=== PATIENT | male | born 1940 | race Caucasian/White ===

== ENCOUNTER 2016-05-30 01:35 | Inpatient (IN) | payer MEDICARE ==
--- NOTE | 2016-05-30 01:51 | ED ---
General Adult HPI - General Chief complaint: Shortness of Breath Stated complaint: Cough/PILY hx COPD/Emphysema Time Seen by Provider: 05/30/16 01:50 Source: patient, RN notes reviewed, old records reviewed Mode of arrival: wheelchair Limitations: no limitations - History of Present Illness Initial comments: This is a 76-year-old male the ER for evaluation. The patient's coming in for cough congestion or shortness of breath. No known fevers. Strong significant medical history consisting of CAD, pacemaker, COPD, CHF. Patient does have a recent hospital admission for definitive care spenser, thinks is impossible for me to days at that time. Patient's symptoms were going on for 2 days, getting progressively worse. No specific chest pain at this time. No travel history. - Related Data Home Medications Medication Instructions Recorded Confirmed Levothyroxine Sodium [Synthroid] 100 mcg PO QAM 09/12/14 05/30/16 Aspirin EC [Ecotrin] 325 mg PO QAM 01/13/15 05/30/16 Atorvastatin [Lipitor] 40 mg PO HS 01/13/15 05/30/16 Lisinopril-Hctz 10-12.5 mg 0.5 tab PO HS PRN 01/13/15 05/30/16 [Zestoretic 10-12.5] Ipratropium-Albuterol Nebulize 3 ml INHALATION Q4H PRN 04/06/16 05/30/16 [Duoneb 0.5 mg-3 mg/3 ml Soln] Mometasone/Formoterol [Dulera 100 2 puff INHALATION RT-BID 04/06/16 05/30/16 Mcg/5 Mcg Inhaler] Montelukast [Singulair] 10 mg PO HS 04/06/16 05/30/16 Omeprazole 20 mg PO DAILY 04/06/16 05/30/16 Allergies Allergy/AdvReac Type Severity Reaction Status Date / Time codeine Allergy Rash/Hives Verified 05/30/16 01:46 iodine Allergy Rash/Hives Verified 05/30/16 01:46 Review of Systems ROS Statement: Those systems with pertinent positive or pertinent negative responses have been documented in the HPI. ROS Other: All systems not noted in ROS Statement are negative. Past Medical History Past Medical History: Coronary Artery Disease (CAD), COPD, CVA/TIA, Dementia, Hyperlipidemia, Hypertension, Osteoarthritis (OA), Syncope, Thyroid Disorder Additional Past Medical History / Comment(s): DYSPHAGIA with epiglottitis from ingested piece of food Last Myocardial Infarction Date:: 1973 History of Any Multi-Drug Resistant Organisms: None Reported Past Surgical History: Appendectomy, Cholecystectomy, Coronary Bypass/CABG, Hernia Repair, Orthopedic Surgery, Pacemaker, Tonsillectomy Additional Past Surgical History / Comment(s): RT ANKLE PIN, FX LEFT HIP WITH PIN, CABG X3, [facility] [employer] Past Anesthesia/Blood Transfusion Reactions: No Reported Reaction Type of Cardiac Device: Permanent Pacemaker Device Placement Date:: 08/31/2014 Past Psychological History: No Psychological Hx Reported Additional Psychological History / Comment(s): DEMENTIA Smoking Status: Former smoker Past Alcohol Use History: None Reported Additional Past Alcohol Use History / Comment(s): Patient is a smoker, pack a day for 50 years and quit 10 years ago. Alcohol intake is rarely. He does not use any street drugs. He is single but lives with family members. He does not have home oxygen, nebulizers, CPAP. Past Drug Use History: None Reported - Past Family History Father Additional Family Medical History / Comment(s): Father at age 37 from motor vehicle accident Brother(s) Additional Family Medical History / Comment(s): Patient has 1 brother and 2 sisters and a half-brother with no major medical problems. Patient also has 2 daughters and 2 sons with no major medical problems. Mother Family Medical History: CVA/TIA Additional Family Medical History / Comment(s): Mother at age 67 from old age. General Exam Limitations: no limitations General appearance: alert, in no apparent distress, anxious Head exam: Present: atraumatic, normocephalic, normal inspection Eye exam: Present: normal appearance, PERRL, EOMI. Absent: scleral icterus, conjunctival injection, periorbital swelling ENT exam: Present: mucous membranes dry, mucous membranes moist Neck exam: Present: normal inspection. Absent: tenderness, meningismus, lymphadenopathy Respiratory exam: Present: normal lung sounds bilaterally, wheezes, decreased breath sounds, prolonged expiratory. Absent: respiratory distress, rales, rhonchi, stridor Cardiovascular Exam: Present: normal rhythm, tachycardia, normal heart sounds. Absent: systolic murmur, diastolic murmur, rubs, gallop, clicks GI/Abdominal exam: Present: soft, normal bowel sounds. Absent: distended, tenderness, guarding, rebound, rigid Extremities exam: Present: normal inspection, full ROM, normal capillary refill. Absent: tenderness, pedal edema, joint swelling, calf tenderness Back exam: Present: normal inspection Neurological exam: Present: alert, oriented X3, CN II-XII intact Psychiatric exam: Present: normal affect, normal mood Skin exam: Present: warm, dry, intact, normal color. Absent: rash Course Vital Signs 05/30/16 05/30/16 05/30/16 01:43 02:35 02:44 Temperature 99.3 F Pulse Rate 111 H 94 94 Respiratory 26 H Rate Blood Pressure 110/65 O2 Sat by Pulse 91 L Oximetry 05/30/16 03:00 Temperature 99.0 F Pulse Rate 94 Respiratory 18 Rate Blood Pressure 119/57 O2 Sat by Pulse 96 Oximetry - Reevaluation(s) Reevaluation #1: 05/30/16 03:27 Patient states he felt better after being treatment and IV hydration. EKG Findings - EKG Comments: EKG Findings:: EKG shows sinus tachycardia rate of 105, MO 150, QRS 116, QTc 478 Medical Decision Making - Medical Decision Making 76 male here for significant short of breath cough and congestion, positive for hospital-acquired pneumonia and treated with appropriate back, patient will be admitted for [place], patient also found to have elevated troponin, patient will be admitted for cardiac evaluation, EKG is negative, patient will be anticoagulated with serial troponins. Patient does have significant history of heart disease - Lab Data Result diagrams: 05/30/16 02:02 05/30/16 02:02 Lab Results 05/30/16 05/30/16 05/30/16 Range/Units 02:02 02:02 02:02 WBC 14.3 H (3.8-10.6) k/uL RBC 4.79 (4.30-5.90) m/uL Hgb 13.7 (13.0-17.5) gm/dL Hct 41.9 (39.0-53.0) % MCV 87.5 (80.0-100.0) fL MCH 28.6 (25.0-35.0) pg MCHC 32.7 (31.0-37.0) g/dL RDW 13.7 (11.5-15.5) % Plt Count 226 (150-450) k/uL PT (9.0-12.0) sec INR (<1.1) Sodium 142 (137-145) mmol/L Potassium 4.3 (3.5-5.1) mmol/L Chloride 106 (98-107) mmol/L Carbon Dioxide 23 (22-30) mmol/L Anion Gap 13 mmol/L BUN 17 (9-20) mg/dL Creatinine 1.10 (0.66-1.25) mg/dL Est GFR (MDRD) Af Amer >60 (>60 ml/min/1.73 sqM) Est GFR (MDRD) Non-Af >60 (>60 ml/min/1.73 sqM) Glucose 140 H (74-99) mg/dL Plasma Lactic Acid Cy (0.7-2.0) mmol/L Calcium 9.2 (8.4-10.2) mg/dL Magnesium 1.7 (1.6-2.3) mg/dL Total Bilirubin 0.9 (0.2-1.3) mg/dL AST 21 (17-59) U/L ALT 32 (21-72) U/L Alkaline Phosphatase 68 (38-126) U/L Total Creatine Kinase 82 (55-170) U/L CK-MB (CK-2) 1.7 (0.0-2.4) ng/mL CK-MB (CK-2) Rel Index 2.1 Troponin I 0.138 H* (0.000-0.034) ng/mL NT-Pro-B Natriuret Pep pg/mL Total Protein 6.6 (6.3-8.2) g/dL Albumin 3.9 (3.5-5.0) g/dL 05/30/16 05/30/16 05/30/16 Range/Units 02:02 02:02 02:02 WBC (3.8-10.6) k/uL RBC (4.30-5.90) m/uL Hgb (13.0-17.5) gm/dL Hct (39.0-53.0) % MCV (80.0-100.0) fL MCH (25.0-35.0) pg MCHC (31.0-37.0) g/dL RDW (11.5-15.5) % Plt Count (150-450) k/uL PT 11.3 (9.0-12.0) sec INR 1.1 (<1.1) Sodium (137-145) mmol/L Potassium (3.5-5.1) mmol/L Chloride (98-107) mmol/L Carbon Dioxide (22-30) mmol/L Anion Gap mmol/L BUN (9-20) mg/dL Creatinine (0.66-1.25) mg/dL Est GFR (MDRD) Af Amer (>60 ml/min/1.73 sqM) Est GFR (MDRD) Non-Af (>60 ml/min/1.73 sqM) Glucose (74-99) mg/dL Plasma Lactic Acid Cy 1.2 (0.7-2.0) mmol/L Calcium (8.4-10.2) mg/dL Magnesium (1.6-2.3) mg/dL Total Bilirubin (0.2-1.3) mg/dL AST (17-59) U/L ALT (21-72) U/L Alkaline Phosphatase (38-126) U/L Total Creatine Kinase (55-170) U/L CK-MB (CK-2) (0.0-2.4) ng/mL CK-MB (CK-2) Rel Index Troponin I (0.000-0.034) ng/mL NT-Pro-B Natriuret Pep 533 pg/mL Total Protein (6.3-8.2) g/dL Albumin (3.5-5.0) g/dL - Radiology Data Radiology results: report reviewed (Chest x-ray two-view positive for pneumonia) , image reviewed Critical Care Time Critical Care Time: Yes Total Critical Care Time: 31 Disposition Clinical Impression: Unstable angina pectoris, Weakness, Community acquired pneumonia, Nosocomial pneumonia, NSTEMI (non-ST elevated myocardial infarction), Elevated troponin Disposition: ADMITTED IP TO THIS [facility] Condition: Serious Referrals: Cyndi Herrera MD [Primary Care Provider] - 1-2 days
[2016-05-30] MEDS ORDERED: ALBUTEROL NEBULIZED 2.5 MG/3 ML INHALATION STA (01:52)
[2016-05-30] MEDS ORDERED: SODIUM CHLORIDE 0.9% 1,000 ML IV STA (01:52)
[2016-05-30] MEDS ORDERED: SODIUM CHLORIDE 0.9% 500 ML IV STA (01:52)
[2016-05-30] MEDS ORDERED: IPRATROPIUM 0.5 MG/2.5 ML NEBU INHALATION STA (01:52)
[2016-05-30 02:30] LABS: CH 29.9; CHCM 34.4; HCT 41.9 % (39.0-53.0); HDW 3.26; HGB 13.7 gm/dL (13.0-17.5); Immature Gran Flag Moderate; MCH 28.6 pg (25.0-35.0); MCHC 32.7 g/dL (31.0-37.0); MCV 87.5 fL (80.0-100.0); Mean Platelet Volume 7.1; RBC 4.79 m/uL (4.30-5.90); RDW 13.7 % (11.5-15.5); WBC 14.3 k/uL (3.8-10.6); WBC (Perox) 14.76
--- NOTE | 2016-05-30 02:30 | XR ---
EXAMINATION TYPE: XR chest 2V DATE OF EXAM: 05/30/2016 2:19 AM COMPARISON: 04/06/2016 HISTORY: Difficulty in breathing, chest pain, COPD, emphysema heart bypass TECHNIQUE: Frontal and lateral views of the chest are obtained. FINDINGS: Mild opacities are noted in the right lung base and is suspicious for mild active infiltrates in the right middle lobe of lung. Left-sided pacemaker is noted. Sternotomy changes are present. Surgical clips are also noted in the r ight upper abdomen with mild gaseous distention of bowel loops. The cardiac silhouette size is within normal limits. No pneumothorax or pleural effusion is noted. [id number] degenerative changes are present in th e thoracic spine. IMPRESSION: 1. Suspected mild active infiltrates in the right middle lobe of lung.
[2016-05-30 02:41] LABS: ALT 32 U/L (21-72); AST 21 U/L (17-59); Alkaline Phosphatase 68 U/L (38-126); Anion Gap 13 mmol/L; Blood Urea Nitrogen 17 mg/dL (9-20); Calcium 9.2 mg/dL (8.4-10.2); Carbon Dioxide 23 mmol/L (22-30); Chloride 106 mmol/L (98-107); Glucose 140 mg/dL (74-99); Magnesium 1.7 mg/dL (1.6-2.3); Non-African American GFR(MDRD) >60 (>60 ml/min/1.73 sqM); Potassium 4.3 mmol/L (3.5-5.1); Sodium 142 mmol/L (137-145); Total Bilirubin 0.9 mg/dL (0.2-1.3); Total Protein 6.6 g/dL (6.3-8.2)
[2016-05-30 02:42] LABS: INR 1.1 (<1.1); Prothrombin Time 11.3 sec (9.0-12.0)
[2016-05-30] MEDS ORDERED: LEVOFLOXACIN 750MG-D5W PMX 750 MG in DEXTROSE/WATER 1 150ML.BAG IVPB STA (02:42)
[2016-05-30] MEDS ORDERED: PIPERACILLIN-TAZOBACTAM 3.375 GM in DEXTROSE/WATER 1 50ML.BAG IVPB STA (02:42)
[2016-05-30 03:13] LABS: Creatine Kinase MB 1.7 ng/mL (0.0-2.4)
[2016-05-30 03:17] LABS: Troponin I 0.138 ng/mL (0.000-0.034)
[2016-05-30] MEDS ORDERED: MORPHINE SULFATE 4 MG/ML SYRINGE IV PRN (03:24)
[2016-05-30] MEDS ORDERED: NITROGLYCERIN SL TABS 0.4 MG TAB SUBLINGUAL PRN (03:24)
[2016-05-30] MEDS ORDERED: HEPARIN SODIUM,PORCINE 5,000 UNIT/ML 1 ML VIAL IV PRN (03:24)
[2016-05-30] MEDS ORDERED: PNEUMONIA PROTOCOL UTILIZED 1 EACH MISC PO PRN (03:24)
[2016-05-30] MEDS ORDERED: HEPARIN SODIUM,PORCINE 5,000 UNIT/ML 1 ML VIAL IV ONE (03:24)
[2016-05-30] MEDS ORDERED: ASPIRIN 81 MG CHEW PO STA (03:24)
[2016-05-30 03:29] LABS: Add Differential Manual Differential
[2016-05-30 03:34] LABS: Band Neutrophils % 33.5 %; Metamyelocytes % 0.5 %; Nucleated Red Blood Cells 0 /100 WBC (0-0); Total Cells Counted 200
[2016-05-30 03:36] LABS: Polychromasia Present
[2016-05-30 03:40] LABS: Toxic Vacuolation Present
[2016-05-30] MEDS: HEPARIN SODIUM,PORCINE/D5W PMX 25,000 UNIT in DEXTROSE/WATER 1 500ML.BAG IV SCH (04:16)
[2016-05-30] MEDS: IPRATROPIUM-ALBUTEROL 3 ML NEB INHALATION SCH ×4 (07:57→19:54)
[2016-05-30] MEDS: ATORVASTATIN 80 MG TAB PO SCH (08:25)
[2016-05-30 09:54] LABS: Creatine Kinase MB 2.8 ng/mL (0.0-2.4)
[2016-05-30 09:55] LABS: Troponin I 0.579 ng/mL (0.000-0.034)
--- NOTE | 2016-05-30 11:13 | P.CRDCN ---
History of Present Illness Consult date: 05/30/16 Requesting physician: Cyndi Herrera Reason for Consult (text): Abnormal troponins Chief complaint: Persistent cough History of present illness: This is a 76-year-old gentleman who follows regularly with Dr. VC Pichardo in the office. He has a known history of coronary artery disease with prior bypass surgery in 1994, hypertension, hyperlipidemia, prior pacemaker implantation. Recent echocardiogram with Doppler study was performed in March which revealed an ejection fraction of 50-55%. Patient presents to the hospital on this occasion with symptoms of persistent cough, productive of clear sputum. Denies any overt shortness of breath. He denies having any chest discomfort at home, he states that while here in the emergency center every time he coughs he gets a pressure in the middle of his chest that lasts about 10 minutes and then subsides. Overall the patient states she's been doing fairly well at home, he did have an admission to the hospital in March of last year with suspicion of AICD discharge, however patient does not have an AICD, he has a pacemaker which was interrogated at that time and is functioning appropriately. EKG on admission showed a sinus tachycardia with a right bundle branch block pattern. Repeat EKG performed this morning showed a normal sinus rhythm with lateral T-wave changes. Chest x-ray on admission revealed the suspicion of an infiltrate in the right middle lobe of the lung. Temperature on admission 99.3. Afebrile this morning. Blood pressure 100/56, heart rate 70s, 94% on 2 L of oxygen. Laboratory data was reviewed, white blood cell count 14.3, hemoglobin 13.7, hematocrit 41.9 with a platelet count of 226. Magnesium level I.7, potassium 4.3, troponin 0.13, 0.57. BNP level 533. At the time of my examination this morning, patient's main complaint is that of this persistent cough, he does state that he is still getting intermittent chest pain each time lasting approximately 10 minutes, describes it as a pressure, states that it occurs after coughing. 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 Last Myocardial Infarction Date:: 1993 History of Any Multi-Drug Resistant Organisms: None Reported Past Surgical History: Appendectomy, Cholecystectomy, Coronary Bypass/CABG, Heart Catheterization, Hernia Repair, Orthopedic Surgery, Pacemaker, Tonsillectomy Additional Past Surgical History / Comment(s): RT ANKLE PIN, FX LEFT HIP WITH nailing, 1993 CABG X3 vessels, [employer] Past Anesthesia/Blood Transfusion Reactions: No Reported Reaction Type of Cardiac Device: Permanent Pacemaker Device Placement Date:: 08/31/2014 Past Psychological History: No Psychological Hx Reported Additional Psychological History / Comment(s): DEMENTIA. Pt resides with his daughter. He no longer drives, his daughter takes him to [employer]. His daughter ( Eula) is his legal guardian. He uses no assistive device. Smoking Status: Never smoker Past Alcohol Use History: None Reported Additional Past Alcohol Use History / Comment(s): Patient started smoking in 1956 and quit in 1994. He had been a pack a day smoker. Alcohol intake is rarely. He does not use any street drugs. He is single but lives with family members. He does not have home oxygen, nebulizers, CPAP. Past Drug Use History: None Reported - Past Family History Father Additional Family Medical History / Comment(s): Father at age 37 from motor vehicle accident Brother(s) Additional Family Medical History / Comment(s): Patient has 1 brother and 2 sisters and a half-brother with no major medical problems. Patient also has 2 daughters and 2 sons with no major medical problems. Mother Family Medical History: CVA/TIA Additional Family Medical History / Comment(s): Mother at age 84 from old age. Medications and Allergies Home Medications Medication Instructions Recorded Confirmed Type Levothyroxine Sodium [Synthroid] 100 mcg PO QAM 09/12/14 05/30/16 History Aspirin EC [Ecotrin] 325 mg PO QAM 01/13/15 05/30/16 History Atorvastatin [Lipitor] 40 mg PO HS 01/13/15 05/30/16 History Lisinopril-Hctz 10-12.5 mg 0.5 tab PO HS PRN 01/13/15 05/30/16 History [Zestoretic 10-12.5] Ipratropium-Albuterol Nebulize 3 ml INHALATION RT-QID PRN 04/06/16 05/30/16 History [Duoneb 0.5 mg-3 mg/3 ml Soln] Mometasone/Formoterol [Dulera 100 2 puff INHALATION RT-BID 04/06/16 05/30/16 History Mcg/5 Mcg Inhaler] Montelukast [Singulair] 10 mg PO HS 04/06/16 05/30/16 History Omeprazole 20 mg PO DAILY 04/06/16 05/30/16 History Allergies Allergy/AdvReac Type Severity Reaction Status Date / Time codeine Allergy Rash/Hives Verified 05/30/16 07:27 iodine Allergy Rash/Hives Verified 05/30/16 07:27 Physical Exam Vitals: Vital Signs Temp Pulse Pulse Resp BP BP Pulse Ox 05/30/16 10:49 73 05/30/16 10:43 75 05/30/16 08:05 72 05/30/16 08:00 96.9 F L 87 16 100/56 94 L 05/30/16 07:58 75 05/30/16 05:59 98.2 F 88 16 122/56 97 05/30/16 04:00 98.4 F 90 18 122/63 98 PHYSICAL EXAMINATION: HEENT: Head is atraumatic, normocephalic. Pupils equal, round. Neck is supple. There is no elevated jugular venous pressure. HEART EXAMINATION: Heart S1, S2 normal. No murmur or gallop heard. CHEST EXAMINATION: Lungs reveal scattered rhonchi posterior bases. ABDOMEN: Soft, nontender. Bowel sounds are heard. No organomegaly noted. EXTREMITIES: 2+ peripheral pulses with no evidence of peripheral edema and no calf tenderness noted. NEUROLOGIC patient is awake, alert and oriented -3. . Results 05/30/16 02:02 05/30/16 02:02 Cardiac Enzymes 05/30/16 Range/Units 07:08 CK-MB (CK-2) 2.8 H* (0.0-2.4) ng/mL Troponin I 0.579 H* (0.000-0.034) ng/mL Coagulation 05/30/16 Range/Units 09:57 APTT 78.9 H (22.0-30.0) sec Current Medications Generic Name Dose Route Start Last Admin Trade Name Freq PRN Reason Stop Dose Admin Albuterol/Ipratropium 3 ml 05/30/16 08:00 05/30/16 10:42 Duoneb 0.5 Mg-3 Mg/3 Ml Soln INHALATION 3 ml RT-QID IDRIS Administration Aspirin 325 mg 05/31/16 09:00 Aspirin PO DAILY IDRIS Atorvastatin Calcium 80 mg 05/30/16 09:00 05/30/16 08:25 Lipitor PO 80 mg DAILY IDRIS Administration Heparin Sodium (Porcine) 0 unit 05/30/16 03:24 Heparin IV PER PROTOCOL PRN Low PTT Protocol Sodium Chloride 1,000 mls @ 100 mls/hr 05/30/16 01:52 05/30/16 02:13 Saline 0.9% IV 05/30/16 11:51 100 mls/hr .Q10H STA Administration Heparin Sodium/Dextrose 25,000 500 mls @ 17.85 mls/hr 05/30/16 03:30 04:16 unit/ IV Solution IV 12 units/kg/hr .Q24H IDRIS 17.85 mls/hr Protocol Administration 12 UNITS/KG/HR Levofloxacin 750 mg/ IV 150 mls @ 100 mls/hr 05/31/16 03:00 Solution IVPB 06/10/16 03:01 Q24H IDRIS Piperacillin/Tazobactam/ 50 mls @ 12.5 mls/hr 05/30/16 12:00 Dextrose 3.375 gm/ IV Solution IVPB Q8H IDRIS Sodium Chloride 1,000 mls @ 100 mls/hr 05/30/16 03:30 Saline 0.9% IV .Q10H IDRIS Miscellaneous Information 1 each 05/30/16 03:24 Pneumonia Protocol Utilized PO ONCE PRN Per Protocol Morphine Sulfate 4 mg 05/30/16 03:24 Morphine Sulfate (Inj) IV Q4HR PRN Chest Pain Nitroglycerin 0.4 mg 05/30/16 03:24 Nitrostat SUBLINGUAL Q5M PRN Chest Pain EKG Interpretations (text) Initial EKG shows a sinus tachycardia with a right bundle branch block pattern lateral ST-T wave changes. Repeat EKG performed this morning shows a normal sinus rhythm with right bundle branch block pattern and progression and lateral ST-T wave changes. Assessment and Plan Plan: Assessment and plan #1 symptoms of persistent cough with evidence of low-grade temperature, elevated white blood cell count suspicion of a right lung pneumonia. Currently on antibiotics. #2 abnormal troponins, possible non-Q-wave myocardial infarction, EKG shows normal sinus rhythm with lateral ST-T wave changes, new as compared with prior EKGs. #3 known history of coronary artery disease with prior bypass surgery #4 hypertension # 5 hyperlipidemia #6 hypothyroidism #7 permanent pacemaker for sick sinus syndrome Plan We will obtain a surgical value, we will also request a repeat echocardiogram with Doppler study because of the abnormal troponins. Continue IV heparin. Further recommendations to follow. DNP note has been reviewed, I agree with a documented findings and plan of care. Patient was seen and examined.
[2016-05-30] MEDS ORDERED: PIPERACILLIN-TAZOBACTAM 3.375 GM in DEXTROSE/WATER 1 50ML.BAG IVPB SCH (12:00)
--- NOTE | 2016-05-30 12:37 | ECHOF ---
Referral Reason:abn trop MEASUREMENTS -------- HEIGHT: 175.3 cm WEIGHT: 74.4 kg BP: 117/56 RVIDd: 3.4 cm (< 3.3) IVSd: 1.2 cm (0.6 - 1.1) LVIDd: 4.3 cm (3.9 - 5.3) LVPWd: 1.0 cm (0.6 - 1.1) IVSs: 1.4 cm LVIDs: 3.0 cm LVPWs: 1.6 cm LA Diam: 3.6 cm (2.7 - 3.8) LAESV Index (A-L): 24.93 ml/m Ao Diam: 2.8 cm (2.0 - 3.7) AV Cusp: 1.8 cm (1.5 - 2.6) MV EXCURSION: 5.553 mm (> 18.000) MV EF SLOPE: 69 mm/s (70 - 150) EPSS: 0.5 cm AV maxP.18 mmHg AV meanP.87 mmHg RAP: 5.00 mmHg RVSP: 63.71 mmHg FINDINGS -------- Sinus rhythm. This was a technically adequate study. The left ventricular size is normal. There is borderline concentric left ventricular hypertrophy. Overall left ventricular systolic function is normal with, an EF between 55 - 60 %. The right ventricle is mildly enlarged. The left atrium is normal in size. Normal LA size by volume 22+/-6 ml/m2. The right atrium is normal in size. Aortic valve is trileaflet and is mildly thickened. There is mild aortic stenosis present. Peak/mean gradient across the Aortic Valve is 16.18mmHg / 8.87mmHg. Mild mitral annular calcification present. Mild tricuspid regurgitation present. There is severe pulmonary hypertension. The right ventricular systolic pressure, as measured by Doppler, is 63.71mmHg. The pulmonic valve was not well visualized. The aortic root size is normal. There is no pericardial effusion. CONCLUSIONS -------- 1. Sinus rhythm. 2. There is mild aortic stenosis present. 3. Peak/mean gradient across the Aortic Valve is 16.18mmHg / 8.87mmHg. 4. Mild mitral annular calcification present. 5. Mild tricuspid regurgitation present. 6. There is severe pulmonary hypertension. 7. The right ventricular systolic pressure, as measured by Doppler, is 63.71mmHg. 8. The pulmonic valve was not well visualized. 9. The aortic root size is normal. 10. There is no pericardial effusion. 11. This was a technically adequate study. 12. The left ventricular size is normal. 13. There is borderline concentric left ventricular hypertrophy. 14. Overall left ventricular systolic function is normal with, an EF between 55 - 60 %. 15. The right ventricle is mildly enlarged. 16. Normal LA size by volume 22+/-6 ml/m2. 17. The right atrium is normal in size. 18. Aortic valve is trileaflet and is mildly thickened. ENERGY SPECIALIST: Louann Bello RDCS
[2016-05-30] MEDS: methylPREDNISolone SOD SUCCI 125 MG/2 ML VIAL IV SCH ×2 (13:32→20:52)
[2016-05-30] MEDS ORDERED: LISINOPRIL-HCTZ 10-12.5 MG 1 EACH TAB PO PRN (15:14)
--- NOTE | 2016-05-30 15:14 | P.HPIM ---
History of Present Illness H&P Date: 05/30/16 Chief Complaint: Cough and dizziness This is a 76-year-old male. His primary care physician is Dr. Herrera. He has a past medical history for coronary artery disease status post CABG, pacemaker, hypertension, hypothyroidism, hyperlipidemia, dysphagia with epiglottitis from ingesting piece of food. Patient states that he has been managing at home well until 2 weeks ago he started with a cough that was nonproductive as well as headache from coughing. He also had some dizziness. He then also developed some wheezing due to his underlying COPD. He states he did not use his nebulizer. His daughter made him come into [facility] emergency center for evaluation. Chest x-ray showed suspected mild active infiltrates in the right middle lobe of the lung. Surprisingly, troponins were elevated at 0.138 and 0.579. He has been seen in consultation by cardiology. Echocardiogram reveals mild aortic stenosis, mild tricuspid regurgitation, severe pulmonary hypertension, borderline concentric left ventricular hypertrophy, EF 55-60%,. Patient is continued on IV heparin. Patient is seen in the emergency center as he is waiting for a selective care bed. Review of Systems All systems: negative Constitutional: Denies chills, Denies fever Eyes: denies blurred vision, denies pain Ears, nose, mouth and throat: Reports vertigo, Denies headache, Denies sore throat Cardiovascular: Reports chest pain, Reports shortness of breath Respiratory: Reports cough, Reports dyspnea, Denies home oxygen Gastrointestinal: Denies abdominal pain, Denies diarrhea, Denies nausea, Denies vomiting Musculoskeletal: Denies myalgias Integumentary: Denies pruritus, Denies rash Neurological: Denies numbness, Denies weakness Psychiatric: Denies anxiety, Denies depression Endocrine: Denies fatigue, Denies weight change Past Medical History Past Medical History: Asthma, Coronary Artery Disease (CAD), Heart Failure, COPD , CVA/TIA, Dementia, Hyperlipidemia, Hypertension, Myocardial Infarction (NV), Osteoarthritis (OA), Pneumonia, Syncope, Thyroid Disorder Additional Past Medical History / Comment(s): DYSPHAGIA with epiglottitis from ingested piece of food, 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 Last Myocardial Infarction Date:: 1993 History of Any Multi-Drug Resistant Organisms: None Reported Past Surgical History: Appendectomy, Cholecystectomy, Coronary Bypass/CABG, Heart Catheterization, Hernia Repair, Orthopedic Surgery, Pacemaker, Tonsillectomy Additional Past Surgical History / Comment(s): RT ANKLE PIN, FX LEFT HIP WITH nailing, 1993 CABG X3 vessels, [facility] Past Anesthesia/Blood Transfusion Reactions: No Reported Reaction Type of Cardiac Device: Permanent Pacemaker Device Placement Date:: 08/31/2014 Past Psychological History: No Psychological Hx Reported Additional Psychological History / Comment(s): DEMENTIA. Pt resides with his daughter. He no longer drives, his daughter takes him to [employer]. His daughter ( Eula) is his legal guardian. He uses no assistive device. Smoking Status: Never smoker Past Alcohol Use History: None Reported Additional Past Alcohol Use History / Comment(s): Patient started smoking in 1956 and quit in 1994. He had been a pack a day smoker. Alcohol intake is rarely. He does not use any street drugs. He is single but lives with family members. He does not have home oxygen, nebulizers, CPAP. Past Drug Use History: None Reported - Past Family History Father Additional Family Medical History / Comment(s): Father at age 37 from motor vehicle accident Brother(s) Additional Family Medical History / Comment(s): Patient has 1 brother and 2 sisters and a half-brother with no major medical problems. Patient also has 2 daughters and 2 sons with no major medical problems. Mother Family Medical History: CVA/TIA Additional Family Medical History / Comment(s): Mother at age 84 from old age. Medications and Allergies Home Medications Medication Instructions Recorded Confirmed Type Levothyroxine Sodium [Synthroid] 100 mcg PO QAM 09/12/14 05/30/16 History Aspirin EC [Ecotrin] 325 mg PO QAM 01/13/15 05/30/16 History Atorvastatin [Lipitor] 40 mg PO HS 01/13/15 05/30/16 History Lisinopril-Hctz 10-12.5 mg 0.5 tab PO HS PRN 01/13/15 05/30/16 History [Zestoretic 10-12.5] Ipratropium-Albuterol Nebulize 3 ml INHALATION RT-QID PRN 04/06/16 05/30/16 History [Duoneb 0.5 mg-3 mg/3 ml Soln] Mometasone/Formoterol [Dulera 100 2 puff INHALATION RT-BID 04/06/16 05/30/16 History Mcg/5 Mcg Inhaler] Montelukast [Singulair] 10 mg PO HS 04/06/16 05/30/16 History Omeprazole 20 mg PO DAILY 04/06/16 05/30/16 History Allergies Allergy/AdvReac Type Severity Reaction Status Date / Time codeine Allergy Rash/Hives Verified 05/30/16 07:27 iodine Allergy Rash/Hives Verified 05/30/16 07:27 Physical Exam Vitals: Vital Signs Temp Pulse Pulse Resp BP BP Pulse Ox 05/30/16 11:45 76 16 112/58 98 05/30/16 11:38 16 05/30/16 10:49 73 05/30/16 10:43 75 05/30/16 08:05 72 05/30/16 08:00 96.9 F L 87 16 100/56 94 L 05/30/16 07:58 75 05/30/16 05:59 98.2 F 88 16 122/56 97 05/30/16 04:00 98.4 F 90 18 122/63 98 Intake and Output 05/29/16 05/30/16 05/30/16 22:59 06:59 14:59 Intake Total 133.875 Output Total 300 Balance -166.125 Intake: Intake, IV Titration 133.875 Amount Heparin Sodium,Porcine/ 133.875 D5w Pmx 25,000 unit In Dextrose/Water 1 500ml. bag @ 12 UNITS/KG/HR 17. 85 mls/hr IV .Q24H [facility] Rx #:[id number] Output: Urine 300 Gen: This is a 76-year-old male. He is sitting up on the stretcher and appears to be in no acute distress. HEENT: Head is atraumatic, normocephalic. Pupils equal, round. Sclerae is anicteric. NECK: Supple. No JVD. No lymphadenopathy. No thyromegaly. LUNGS: Appear scattered rhonchi with fine expiratory wheezing. No intercostal retractions. HEART: Regular rate and rhythm. No murmur. ABDOMEN: Soft. Bowel sounds are present. No masses. No tenderness. EXTREMITIES: No pedal edema. No calf tenderness. Dorsalis pedis +2 palpable bilaterally. NEUROLOGICAL: Patient is awake, alert and oriented x3. Cranial nerves 2 through 12 are grossly intact. Results CBC & Chem 7: 05/30/16 02:02 05/30/16 02:02 Labs: Abnormal Lab Results - Last 24 Hours (Table) 05/30/16 05/30/16 Range/Units 07:08 09:57 APTT 78.9 H (22.0-30.0) sec CK-MB (CK-2) 2.8 H* (0.0-2.4) ng/mL Troponin I 0.579 H* (0.000-0.034) ng/mL Thrombosis Risk Factor Assmnt - DVT/VTE Prophylaxis DVT/VTE Prophylaxis: Pharmacologic Prophylaxis ordered - Choose All That Apply Any of the Below Risk Factors Present?: Yes Each Factor Represents 1 point: Abnormal pulmonary function (COPD), Acute NV Other Risk Factors: Yes Each Risk Factor Represents 3 Points: Age 75 years or older Other congenital or acquired thrombophilia - If yes, enter type in comment: No Thrombosis Risk Factor Assessment Total Risk Factor Score: 5 Thrombosis Risk Factor Assessment Level: High Risk Assessment and Plan Plan: 1. Pneumonia, possible gram-negative pneumonia. Patient will be continued on Levaquin, DuoNeb treatments 4 times daily, Solu-Medrol 60 mg IV every 6 hours. 2. Possible non-ST elevated myocardial infarction. Cardiology consult is appreciated. Patient is currently on heparin drip. Continue aspirin 325 mg daily, Lipitor 80 mg daily, Nitrostat as needed. 3. COPD exacerbation with underlying asthma, moderate persistent. Continue DuoNeb treatments 4 times daily, Singulair 10 mg at bedtime, Solu-Medrol 60 mg IV every 12 hours. 4. Hypertension. Continue Zestoretic 5. Hypothyroidism. Continue levothyroxine 100 g daily 6. Hyperlipidemia. Continue Lipitor 40 mg at bedtime Admit patient to the hospital for minimum two night stay. Discharge plan: Return home Impression and plan of care have been directed as dictated by the signing physician. Elizabeth Maxwell nurse practitioner acting as scribe for signing physician. Time with Patient: Greater than 30
[2016-05-30] MEDS: SODIUM CHLORIDE 0.9% 1,000 ML IV SCH ×3 (16:55→23:57)
[2016-05-30 18:10] LABS: Creatine Kinase MB 3.9 ng/mL (0.0-2.4); Troponin I 0.6 ng/mL (0.000-0.034)
[2016-05-30] MEDS: MONTELUKAST 10 MG TAB PO SCH (20:53)
[2016-05-31] MEDS: LEVOFLOXACIN 750MG-D5W PMX 750 MG in DEXTROSE/WATER 1 150ML.BAG IVPB SCH (06:03)
[2016-05-31] MEDS: HEPARIN SODIUM,PORCINE/D5W PMX 25,000 UNIT in DEXTROSE/WATER 1 500ML.BAG IV SCH (06:03)
[2016-05-31 06:27] LABS: Basophils % (A) 0 %; CH 29.2; CHCM 32.6; Eosinophils % (A) 0 %; HCT 35.8 % (39.0-53.0); HDW 3.13; HGB 11.6 gm/dL (13.0-17.5); Hypochromasia Slight; Luc # (Auto) 0.04; Luc % (Auto) 0; Lymphocytes # (A) 0.5 k/uL (1.0-4.8); Lymphocytes % (A) 5 %; MCH 29.1 pg (25.0-35.0); MCHC 32.3 g/dL (31.0-37.0); Mean Platelet Volume 6.3; Monocytes # (A) 0.2 k/uL (0-1.0); Monocytes % (A) 2 %; Neutrophils # (A) 8.2 k/uL (1.3-7.7); Neutrophils % (A) 92 %; RBC 3.98 m/uL (4.30-5.90); RDW 13.5 % (11.5-15.5); WBC 8.9 k/uL (3.8-10.6); WBC (Perox) 9.73
[2016-05-31] MEDS: PANTOPRAZOLE 40 MG TABLET PO SCH (06:28)
[2016-05-31] MEDS: LEVOTHYROXINE 100 MCG TAB PO SCH (06:28)
[2016-05-31 06:41] LABS: Cholesterol 112 mg/dL (<200); HDL Cholesterol 39 mg/dL (40-60); Triglycerides 61 mg/dL (<150)
[2016-05-31 08:01] LABS: Glucose,Whole Blood 172 mg/dL (75-99)
--- NOTE | 2016-05-31 08:09 | XR ---
EXAMINATION TYPE: XR chest 2V DATE OF EXAM: 05/31/2016 6:40 AM HISTORY: Difficulty breathing. REFERENCE: Previous study dated 05/30/2016. FINDINGS: There has been a midline sternotomy. There is a bipolar pacemaker in place on the left. The lungs are overinflated. There is some residual parenchymal opacity at the left lung base. The rig ht lung is clear. Pleural spaces are clear. Heart size is normal. IMPRESSION: 1. COPD. 2. LEFT BASILAR ATELECTASIS OR CONSOLIDATION. THIS HAS IMPROVED FROM PREVIOUS.
[2016-05-31] MEDS: ASPIRIN 325 MG TAB PO SCH (08:51)
[2016-05-31] MEDS: methylPREDNISolone SOD SUCCI 125 MG/2 ML VIAL IV SCH ×2 (08:51→22:17)
[2016-05-31] MEDS: ATORVASTATIN 80 MG TAB PO SCH (08:52)
[2016-05-31] MEDS: IPRATROPIUM-ALBUTEROL 3 ML NEB INHALATION SCH ×4 (09:20→20:25)
[2016-05-31 11:47] LABS: Glucose,Whole Blood 132 mg/dL (75-99)
[2016-05-31] MEDS: SODIUM CHLORIDE 0.9% 1,000 ML IV SCH ×2 (12:57→22:17)
[2016-05-31] MEDS: INSULIN LISPRO (humaLOG) 300 UNIT/3 ML VIAL SQ SCH ×3 (12:58→22:07)
--- NOTE | 2016-05-31 13:45 | P.PN ---
Subjective This is a 76-year-old male. His primary care physician is Dr. Herrera. He has a past medical history for coronary artery disease status post CABG, pacemaker, hypertension, hypothyroidism, hyperlipidemia, dysphagia with epiglottitis from ingesting piece of food. Patient states that he has been managing at home well until 2 weeks ago he started with a cough that was nonproductive as well as headache from coughing. He also had some dizziness. He then also developed some wheezing due to his underlying COPD. He states he did not use his nebulizer. His daughter made him come into [facility] emergency center for evaluation. Chest x-ray showed suspected mild active infiltrates in the right middle lobe of the lung. Surprisingly, troponins were elevated at 0.138 and 0.579. He has been seen in consultation by cardiology. Echocardiogram reveals mild aortic stenosis, mild tricuspid regurgitation, severe pulmonary hypertension, borderline concentric left ventricular hypertrophy, EF 55-60%,. Patient is continued on IV heparin. Patient is seen in the emergency center as he is waiting for a [facility] care bed. 05/31: Patient states he was up to the shower this morning and did fine but now developed left-sided chest pain while he was resting in bed. It was a sudden onset. Patient was given nitroglycerin with relief and Nitropaste has been added. He remains on heparin drip. He states his breathing status is somewhat better from yesterday. Echocardiogram reveals mild aortic stenosis, mild tricuspid regurgitation, severe pulmonary hypertension mild mitral calcifications, borderline concentric left ventricular hypertrophy, EF 55-60%. Third troponin is 0.6. Triglycerides 61, cholesterol 112, LDL 61, HDL 39. Objective - Vital Signs Vital signs: Vital Signs Temp 97.0 F L 05/31/16 08:00 Pulse 88 05/31/16 09:31 Resp 20 05/31/16 08:00 BP 114/55 05/31/16 04:00 Pulse Ox 100 05/31/16 08:00 Intake & Output 05/30/16 05/31/16 05/31/16 18:59 06:59 18:59 Intake Total 373.875 580.101 25.278 Output Total 300 200 Balance 73.875 380.101 25.278 Weight 75.5 kg Intake: Intake, IV Titration 133.875 280.101 25.278 Amount Heparin Sodium,Porcine/ 133.875 280.101 25.278 D5w Pmx 25,000 unit In Dextrose/Water 1 500ml. bag @ 12 UNITS/KG/HR 17. 85 mls/hr IV .Q24H [facility] Rx #:[id number] Oral 240 300 Output: Urine 300 200 Other: Voiding Method Toilet Urinal # Voids 1 - Exam Gen: This is a 76-year-old male. He is sitting up on the stretcher and appears to be in no acute distress. HEENT: Head is atraumatic, normocephalic. Pupils equal, round. Sclerae is anicteric. NECK: Supple. No JVD. No lymphadenopathy. No thyromegaly. LUNGS: Appear scattered rhonchi without wheezing. No intercostal retractions. HEART: Regular rate and rhythm. No murmur. ABDOMEN: Soft. Bowel sounds are present. No masses. No tenderness. EXTREMITIES: No pedal edema. No calf tenderness. Dorsalis pedis +2 palpable bilaterally. NEUROLOGICAL: Patient is awake, alert and oriented x3. Cranial nerves 2 through 12 are grossly intact. - Labs CBC & Chem 7: 05/31/16 05:49 05/30/16 02:02 Labs: Abnormal Lab Results - Last 24 Hours (Table) 05/30/16 05/30/16 05/30/16 Range/Units 09:57 17:12 17:12 RBC (4.30-5.90) m/uL Hgb (13.0-17.5) gm/dL Hct (39.0-53.0) % Neutrophils # (1.3-7.7) k/uL Lymphocytes # (1.0-4.8) k/uL APTT 78.9 H 53.4 H (22.0-30.0) sec POC Glucose (mg/dL) (75-99) mg/dL CK-MB (CK-2) 3.9 H* (0.0-2.4) ng/mL Troponin I 0.600 H* (0.000-0.034) ng/mL HDL Cholesterol (40-60) mg/dL 05/31/16 05/31/16 05/31/16 Range/Units 05:49 05:49 05:49 RBC 3.98 L (4.30-5.90) m/uL Hgb 11.6 L (13.0-17.5) gm/dL Hct 35.8 L (39.0-53.0) % Neutrophils # 8.2 H (1.3-7.7) k/uL Lymphocytes # 0.5 L (1.0-4.8) k/uL APTT 47.6 H (22.0-30.0) sec POC Glucose (mg/dL) (75-99) mg/dL CK-MB (CK-2) (0.0-2.4) ng/mL Troponin I (0.000-0.034) ng/mL HDL Cholesterol 39 L (40-60) mg/dL 05/31/16 Range/Units 07:49 RBC (4.30-5.90) m/uL Hgb (13.0-17.5) gm/dL Hct (39.0-53.0) % Neutrophils # (1.3-7.7) k/uL Lymphocytes # (1.0-4.8) k/uL APTT (22.0-30.0) sec POC Glucose (mg/dL) 172 H (75-99) mg/dL CK-MB (CK-2) (0.0-2.4) ng/mL Troponin I (0.000-0.034) ng/mL HDL Cholesterol (40-60) mg/dL Assessment and Plan Plan: 1. Pneumonia, possible gram-negative pneumonia. Patient will be continued on Levaquin, DuoNeb treatments 4 times daily, Solu-Medrol 60 mg IV every 12 hours. 2. Possible non-ST elevated myocardial infarction. Cardiology consult is appreciated. Patient is currently on heparin drip. Continue aspirin 325 mg daily, Lipitor 80 mg daily, Nitrostat as needed. Nitropaste added 3. COPD exacerbation with underlying asthma, moderate persistent. Continue DuoNeb treatments 4 times daily, Singulair 10 mg at bedtime, Solu-Medrol 60 mg IV every 12 hours. 4. Hypertension. Continue Zestoretic 5. Hypothyroidism. Continue levothyroxine 100 g daily 6. Hyperlipidemia. Continue Lipitor 40 mg at bedtime Discharge plan: Return home Impression and plan of care have been directed as dictated by the signing physician. Elizabeth Maxwell nurse practitioner acting as scribe for signing physician. Time with Patient: Greater than 30
[2016-05-31 14:14] LABS: Hemoglobin A1C 5.4 % (4.2-6.1)
[2016-05-31 14:44] LABS: Anion Gap 10 mmol/L; Blood Urea Nitrogen 18 mg/dL (9-20); Calcium 8.6 mg/dL (8.4-10.2); Carbon Dioxide 25 mmol/L (22-30); Chloride 108 mmol/L (98-107); Glucose 161 mg/dL (74-99); Non-African American GFR(MDRD) >60 (>60 ml/min/1.73 sqM); Potassium 4.5 mmol/L (3.5-5.1); Sodium 143 mmol/L (137-145)
--- NOTE | 2016-05-31 16:19 | P.PN ---
Subjective Principal diagnosis: Cough, CHest pain This is a 76-year-old gentleman who follows regularly with Dr. VC Pichardo in the office. He has a known history of coronary artery disease with prior bypass surgery in 1994, hypertension, hyperlipidemia, prior pacemaker implantation. Recent echocardiogram with Doppler study was performed in March which revealed an ejection fraction of 50-55%. Patient presents to the hospital on this occasion with symptoms of persistent cough, productive of clear sputum. Denies any overt shortness of breath. He denies having any chest discomfort at home, he states that while here in the emergency center every time he coughs he gets a pressure in the middle of his chest that lasts about 10 minutes and then subsides. Overall the patient states she's been doing fairly well at home, he did have an admission to the hospital in March of last year with suspicion of AICD discharge, however patient does not have an AICD, he has a pacemaker which was interrogated at that time and is functioning appropriately. EKG on admission showed a sinus tachycardia with a right bundle branch block pattern. Patient did have an episode of chest discomfort today with notable lateral ST depression. He was advised to undergo cardiac catheterization tomorrow the risks and benefits were explained in detail this will be performed tomorrow by Dr. VC Pichardo. Objective - Vital Signs Vital signs: Vital Signs Temp 97.0 F L 05/31/16 08:00 Pulse 76 05/31/16 12:38 Resp 20 05/31/16 12:00 BP 145/69 05/31/16 12:00 Pulse Ox 97 05/31/16 12:00 Intake & Output 05/30/16 05/31/16 05/31/16 18:59 06:59 18:59 Intake Total 373.875 601.311 7908.394 Output Total 300 200 Balance 73.875 118.742 8923.394 Weight 75.5 kg Intake: Intake, IV Titration 133.875 286.730 0274.394 Amount Heparin Sodium,Porcine/ 133.875 280.101 152.394 D5w Pmx 25,000 unit In Dextrose/Water 1 500ml. bag @ 12 UNITS/KG/HR 17. 85 mls/hr IV .Q24H [facility] Rx #:[id number] Levofloxacin 750Mg-D5w 100 Pmx 750 mg In Dextrose/ Water 1 150ml.bag @ 100 mls/hr IVPB Q24H [facility] Rx#: [id number] Sodium Chloride 0.9% 1, 800 000 ml @ 100 mls/hr IV . Q10H [facility] Rx#:[id number] Oral 240 300 180 Output: Urine 300 200 Other: Voiding Method Toilet Urinal # Voids 1 - Exam PHYSICAL EXAMINATION: HEENT: Head is atraumatic, normocephalic. Pupils equal, round. Neck is supple. There is no elevated jugular venous pressure. HEART EXAMINATION: Heart S1, S2 normal. No murmur or gallop heard. CHEST EXAMINATION: Lungs reveal scattered rhonchi posterior bases. ABDOMEN: Soft, nontender. Bowel sounds are heard. No organomegaly noted. EXTREMITIES: 2+ peripheral pulses with no evidence of peripheral edema and no calf tenderness noted. NEUROLOGIC patient is awake, alert and oriented -3. . - Labs CBC & Chem 7: 05/31/16 05:49 05/31/16 05:49 Labs: Abnormal Lab Results - Last 24 Hours (Table) 05/30/16 05/30/16 05/31/16 Range/Units 17:12 17:12 05:49 RBC 3.98 L (4.30-5.90) m/uL Hgb 11.6 L (13.0-17.5) gm/dL Hct 35.8 L (39.0-53.0) % Neutrophils # 8.2 H (1.3-7.7) k/uL Lymphocytes # 0.5 L (1.0-4.8) k/uL APTT 53.4 H (22.0-30.0) sec Chloride (98-107) mmol/L Glucose (74-99) mg/dL POC Glucose (mg/dL) (75-99) mg/dL CK-MB (CK-2) 3.9 H* (0.0-2.4) ng/mL Troponin I 0.600 H* (0.000-0.034) ng/mL HDL Cholesterol (40-60) mg/dL 05/31/16 05/31/16 05/31/16 Range/Units 05:49 05:49 05:49 RBC (4.30-5.90) m/uL Hgb (13.0-17.5) gm/dL Hct (39.0-53.0) % Neutrophils # (1.3-7.7) k/uL Lymphocytes # (1.0-4.8) k/uL APTT 47.6 H (22.0-30.0) sec Chloride 108 H (98-107) mmol/L Glucose 161 H (74-99) mg/dL POC Glucose (mg/dL) (75-99) mg/dL CK-MB (CK-2) (0.0-2.4) ng/mL Troponin I (0.000-0.034) ng/mL HDL Cholesterol 39 L (40-60) mg/dL 05/31/16 05/31/16 05/31/16 Range/Units 07:49 11:45 13:52 RBC (4.30-5.90) m/uL Hgb (13.0-17.5) gm/dL Hct (39.0-53.0) % Neutrophils # (1.3-7.7) k/uL Lymphocytes # (1.0-4.8) k/uL APTT 46.9 H (22.0-30.0) sec Chloride (98-107) mmol/L Glucose (74-99) mg/dL POC Glucose (mg/dL) 172 H 132 H (75-99) mg/dL CK-MB (CK-2) (0.0-2.4) ng/mL Troponin I (0.000-0.034) ng/mL HDL Cholesterol (40-60) mg/dL Assessment and Plan Plan: Assessment and plan #1 symptoms of persistent cough with evidence of low-grade temperature, elevated white blood cell count suspicion of a right lung pneumonia. Currently on antibiotics. #2 abnormal troponins, with evidence of lateral ST-T wave changes suggestive of non-Q-wave myocardial infarction, #3 known history of coronary artery disease with prior bypass surgery #4 hypertension # 5 hyperlipidemia #6 hypothyroidism #7 permanent pacemaker for sick sinus syndrome Plan Patient will be scheduled tomorrow to undergo cardiac catheterization. Risks and the benefits were explained to the patient in detail and this will be performed tomorrow by Dr. VC Pichardo. DNP note has been reviewed, I agree with a documented findings and plan of care. Patient was seen and examined.
[2016-05-31 17:04] LABS: Glucose,Whole Blood 132 mg/dL (75-99)
[2016-05-31 21:39] LABS: Glucose,Whole Blood 122 mg/dL (75-99)
[2016-05-31] MEDS: MONTELUKAST 10 MG TAB PO SCH (22:17)
[2016-05-31] MEDS: NITROGLYCERIN OINT 1 INCH/GM PACKET TOPICAL SCH (23:07)
[2016-06-01] MEDS: LEVOFLOXACIN 750MG-D5W PMX 750 MG in DEXTROSE/WATER 1 150ML.BAG IVPB SCH (04:53)
[2016-06-01] MEDS: HEPARIN SODIUM,PORCINE/D5W PMX 25,000 UNIT in DEXTROSE/WATER 1 500ML.BAG IV SCH (06:16)
[2016-06-01 06:17] LABS: Glucose,Whole Blood 150 mg/dL (75-99)
[2016-06-01] MEDS: NITROGLYCERIN OINT 1 INCH/GM PACKET TOPICAL SCH ×2 (06:20→11:34)
[2016-06-01 06:27] LABS: Basophils % (A) 0 %; CH 29.1; CHCM 31.9; Eosinophils % (A) 0 %; HCT 38.6 % (39.0-53.0); HDW 3.08; HGB 12.3 gm/dL (13.0-17.5); Hypochromasia Slight; Luc # (Auto) 0.07; Luc % (Auto) 1; Lymphocytes # (A) 0.5 k/uL (1.0-4.8); Lymphocytes % (A) 4 %; MCH 29.2 pg (25.0-35.0); MCHC 31.8 g/dL (31.0-37.0); MCV 91.8 fL (80.0-100.0); Mean Platelet Volume 6.9; Monocytes # (A) 0.5 k/uL (0-1.0); Monocytes % (A) 4 %; Neutrophils # (A) 12.4 k/uL (1.3-7.7); Neutrophils % (A) 92 %; RBC 4.21 m/uL (4.30-5.90); RDW 13.7 % (11.5-15.5); WBC 13.4 k/uL (3.8-10.6); WBC (Perox) 13.66
[2016-06-01 06:37] LABS: ALT 30 U/L (21-72); AST 26 U/L (17-59); Alkaline Phosphatase 61 U/L (38-126); Anion Gap 14 mmol/L; Blood Urea Nitrogen 18 mg/dL (9-20); Calcium 8.5 mg/dL (8.4-10.2); Carbon Dioxide 21 mmol/L (22-30); Chloride 113 mmol/L (98-107); Glucose 141 mg/dL (74-99); Non-African American GFR(MDRD) >60 (>60 ml/min/1.73 sqM); Potassium 4.2 mmol/L (3.5-5.1); Sodium 148 mmol/L (137-145); Total Bilirubin 0.4 mg/dL (0.2-1.3); Total Protein 6.2 g/dL (6.3-8.2)
[2016-06-01] MEDS: LEVOTHYROXINE 100 MCG TAB PO SCH (07:03)
[2016-06-01] MEDS: PANTOPRAZOLE 40 MG TABLET PO SCH (07:03)
[2016-06-01] MEDS: INSULIN LISPRO (humaLOG) 300 UNIT/3 ML VIAL SQ SCH ×4 (07:04→21:17)
[2016-06-01] MEDS: IPRATROPIUM-ALBUTEROL 3 ML NEB INHALATION SCH ×4 (07:36→19:37)
[2016-06-01] MEDS: SODIUM CHLORIDE 0.9% 1,000 ML IV SCH ×3 (09:26→15:46)
[2016-06-01] MEDS: methylPREDNISolone SOD SUCCI 125 MG/2 ML VIAL IV SCH (09:29)
[2016-06-01] MEDS: ASPIRIN 325 MG TAB PO SCH (09:29)
[2016-06-01] MEDS: ATORVASTATIN 80 MG TAB PO SCH (09:29)
[2016-06-01] MEDS ORDERED: LIDOCAINE 2% INJ 20 MG/ML (20 ML MDV) ONE (11:12)
[2016-06-01] MEDS ORDERED: diphenhydrAMINE 50 MG/ML 1 ML VIAL ONE (11:18)
[2016-06-01] MEDS ORDERED: MIDAZOLAM 2 MG/2 ML VIAL ONE (11:39)
[2016-06-01] MEDS ORDERED: fentaNYL (PF) 50 MCG/ML 2 ML AMP ONE (11:39)
[2016-06-01] MEDS ORDERED: diphenhydrAMINE 50 MG/ML 1 ML VIAL IVP ONE (11:40)
[2016-06-01] MEDS ORDERED: MIDAZOLAM 2 MG/2 ML VIAL IV ONE (11:41)
[2016-06-01] MEDS: fentaNYL (PF) 50 MCG/ML 2 ML AMP IV ONE ×2 (11:41→11:49)
[2016-06-01] MEDS ORDERED: LIDOCAINE 2% INJ 20 MG/ML SQ ONE (11:45)
[2016-06-01] MEDS ORDERED: BIVALIRUDIN 250 MG in SODIUM CHLORIDE 0.9% 50 ML IV ONE (12:59)
[2016-06-01] MEDS ORDERED: BIVALIRUDIN BOLUS 250 MG/50 ML IV ONE (12:59)
[2016-06-01] MEDS ORDERED: SODIUM CHLORIDE 0.9% 1,000 ML IV ONE (13:07)
--- NOTE | 2016-06-01 13:12 | P.PN ---
Subjective This is a 76-year-old male. His primary care physician is Dr. Herrera. He has a past medical history for coronary artery disease status post CABG, pacemaker, hypertension, hypothyroidism, hyperlipidemia, dysphagia with epiglottitis from ingesting piece of food. Patient states that he has been managing at home well until 2 weeks ago he started with a cough that was nonproductive as well as headache from coughing. He also had some dizziness. He then also developed some wheezing due to his underlying COPD. He states he did not use his nebulizer. His daughter made him come into [facility] emergency center for evaluation. Chest x-ray showed suspected mild active infiltrates in the right middle lobe of the lung. Surprisingly, troponins were elevated at 0.138 and 0.579. He has been seen in consultation by cardiology. Echocardiogram reveals mild aortic stenosis, mild tricuspid regurgitation, severe pulmonary hypertension, borderline concentric left ventricular hypertrophy, EF 55-60%,. Patient is continued on IV heparin. Patient is seen in the emergency center as he is [facility]. 05/31: Patient states he was up to the shower this morning and did fine but now developed left-sided chest pain while he was resting in bed. It was a sudden onset. Patient was given nitroglycerin with relief and Nitropaste has been added. He remains on heparin drip. He states his breathing status is somewhat better from yesterday. Echocardiogram reveals mild aortic stenosis, mild tricuspid regurgitation, severe pulmonary hypertension mild mitral calcifications, borderline concentric left ventricular hypertrophy, EF 55-60%. Third troponin is 0.6. Triglycerides 61, cholesterol 112, LDL 61, HDL 39. 06/01: Patient is scheduled for heart catheterization today. He states his lungs are feeling better. He does have a hacking cough. Solu-Medrol will be decreased to 40 mg every 8 hours Chest pain is not present. Objective - Vital Signs Vital signs: Vital Signs Temp 97.4 F L 06/01/16 08:00 Pulse 74 06/01/16 08:00 Resp 18 06/01/16 08:00 BP 123/59 06/01/16 08:00 Pulse Ox 94 L 06/01/16 08:00 Intake & Output 05/31/16 06/01/16 06/01/16 18:59 06:59 18:59 Intake Total 1452.394 332.167 150 Balance 1452.394 332.167 150 Weight 76.2 kg Intake: IV 150 Intake, IV Titration 1052.394 332.167 Amount Heparin Sodium,Porcine/ 152.394 332.167 D5w Pmx 25,000 unit In Dextrose/Water 1 500ml. bag @ 12 UNITS/KG/HR 17. 85 mls/hr IV .Q24H [facility] Rx #:[id number] Levofloxacin 750Mg-D5w 100 Pmx 750 mg In Dextrose/ Water 1 150ml.bag @ 100 mls/hr IVPB Q24H [facility] Rx#: [id number] Sodium Chloride 0.9% 1, 800 000 ml @ 100 mls/hr IV . Q10H [facility] Rx#:[id number] Oral 400 Other: # Voids 1 - Exam Gen: This is a 76-year-old male. He is sitting up in bed and appears to be in no acute distress. HEENT: Head is atraumatic, normocephalic. Pupils equal, round. Sclerae is anicteric. NECK: Supple. No JVD. No lymphadenopathy. No thyromegaly. LUNGS: Scattered rhonchi without wheezing. No intercostal retractions. HEART: Regular rate and rhythm. No murmur. ABDOMEN: Soft. Bowel sounds are present. No masses. No tenderness. EXTREMITIES: No pedal edema. No calf tenderness. Dorsalis pedis +2 palpable bilaterally. NEUROLOGICAL: Patient is awake, alert and oriented x3. Cranial nerves 2 through 12 are grossly intact. - Labs CBC & Chem 7: 06/01/16 05:22 06/01/16 05:22 Labs: Abnormal Lab Results - Last 24 Hours (Table) 05/31/16 05/31/16 05/31/16 Range/Units 05:49 13:52 17:03 WBC (3.8-10.6) k/uL RBC (4.30-5.90) m/uL Hgb (13.0-17.5) gm/dL Hct (39.0-53.0) % Neutrophils # (1.3-7.7) k/uL Lymphocytes # (1.0-4.8) k/uL APTT 46.9 H (22.0-30.0) sec Sodium (137-145) mmol/L Chloride 108 H (98-107) mmol/L Carbon Dioxide (22-30) mmol/L Glucose 161 H (74-99) mg/dL POC Glucose (mg/dL) 132 H (75-99) mg/dL Total Protein (6.3-8.2) g/dL Albumin (3.5-5.0) g/dL 05/31/16 05/31/16 06/01/16 Range/Units 20:02 21:38 05:22 WBC 13.4 H (3.8-10.6) k/uL RBC 4.21 L (4.30-5.90) m/uL Hgb 12.3 L (13.0-17.5) gm/dL Hct 38.6 L (39.0-53.0) % Neutrophils # 12.4 H (1.3-7.7) k/uL Lymphocytes # 0.5 L (1.0-4.8) k/uL APTT 49.0 H (22.0-30.0) sec Sodium (137-145) mmol/L Chloride (98-107) mmol/L Carbon Dioxide (22-30) mmol/L Glucose (74-99) mg/dL POC Glucose (mg/dL) 122 H (75-99) mg/dL Total Protein (6.3-8.2) g/dL Albumin (3.5-5.0) g/dL 06/01/16 06/01/16 06/01/16 Range/Units 05:22 05:31 06:16 WBC (3.8-10.6) k/uL RBC (4.30-5.90) m/uL Hgb (13.0-17.5) gm/dL Hct (39.0-53.0) % Neutrophils # (1.3-7.7) k/uL Lymphocytes # (1.0-4.8) k/uL APTT 40.1 H (22.0-30.0) sec Sodium 148 H (137-145) mmol/L Chloride 113 H (98-107) mmol/L Carbon Dioxide 21 L (22-30) mmol/L Glucose 141 H (74-99) mg/dL POC Glucose (mg/dL) 150 H (75-99) mg/dL Total Protein 6.2 L (6.3-8.2) g/dL Albumin 3.3 L (3.5-5.0) g/dL Assessment and Plan Plan: 1. Pneumonia, possible gram-negative pneumonia. Patient will be continued on Levaquin, DuoNeb treatments 4 times daily, Solu-Medrol 40 mg IV every 8 hours. 2. Possible non-ST elevated myocardial infarction. Cardiology consult is appreciated. Patient is currently on heparin drip. Continue aspirin 325 mg daily, Lipitor 80 mg daily, Nitrostat as needed. Nitropaste added 3. COPD exacerbation with underlying asthma, moderate persistent. Continue DuoNeb treatments 4 times daily, Singulair 10 mg at bedtime, Solu-Medrol 40 mg IV every 8 hours. 4. Hypertension. Continue Zestoretic 5. Hypothyroidism. Continue levothyroxine 100 g daily 6. Hyperlipidemia. Continue Lipitor 40 mg at bedtime Discharge plan: Return home Impression and plan of care have been directed as dictated by the signing physician. Elizabeth Maxwell nurse practitioner acting as scribe for signing physician. Time with Patient: Greater than 30
[2016-06-01] MEDS ORDERED: CLOPIDOGREL 75 MG TAB ONE (13:26)
[2016-06-01] MEDS ORDERED: NITROGLYCERIN 1000MCG/10ML SYRINGE INTRACORON ONE (13:26)
[2016-06-01] MEDS ORDERED: MAG HYDROX/AL HYDROX/SIMETH 30 ML CUP PO PRN (13:37)
[2016-06-01] MEDS ORDERED: RX INFO: IV CONTRAST WAS GIVEN 1 EACH MISC MISCELLANE PRN (13:37)
[2016-06-01] MEDS ORDERED: NITROGLYCERIN SL TABS 0.4 MG TAB SUBLINGUAL PRN (13:37)
[2016-06-01] MEDS ORDERED: ZOLPIDEM 5 MG TAB PO PRN (13:37)
[2016-06-01] MEDS ORDERED: CLOPIDOGREL 75 MG TAB PO ONE (13:41)
[2016-06-01] MEDS ORDERED: IOHEXOL 350 MG/ML 100 ML BOTTLE INJ ONE (13:41)
--- NOTE | 2016-06-01 15:12 | CC ---
DATE OF SERVICE: Mr. Caballero is a 76-year-old gentleman who was admitted with symptoms of cough and shortness of breath and intermittent chest pressure. Patient's troponin went up to 2.6. Patient's EKG showed a right bundle branch block. There was evidence of ST segment depression in V5 and V6 suggestive of a non-Q-wave myocardial infarction. In view of that, the patient was recommended to have a cardiac catheterization for definitive diagnosis. PROCEDURE: The right groin was prepped and draped in the usual manner and the skin was infiltrated with 2% Xylocaine. The right femoral artery was entered using Seldinger technique. A #6 Swedish sheath was placed in. Selective coronary angiography was then performed in multiple projections. Selective injection of the venous graft as well as DIA was done using Katie catheter. Patient tolerated the procedure well. HEMODYNAMICS: Left ventricular end-diastolic pressure was 22 to 24 mmHg prior to angiography. No gradient was noted across the aortic valve. LEFT MAIN: Left main coronary artery is normal. There is ostial left anterior descending coronary artery stenosis and after the origin of the diagonal branch, LAD thought to be occluded. CIRCUMFLEX CORONARY ARTERY: The circumflex coronary artery is totally occluded after the small size was obtuse marginal branch. RIGHT CORONARY ARTERY: Right coronary artery has a proximal area of stenosis of about 50% to 60%. The mid RCA has about 80% hazy-looking ( ) the right coronary artery is dominant. The saphenous vein graft to the diagonal branch is patent, saphenous vein graft to the obtuse marginal branch is patent. Obtuse marginal branch beyond the graft insertion is a very small caliber blood vessel. The DIA graft to the LAD is patent. RECOMMENDATIONS: With the above anatomy, we will review the film with Dr. Mariella Alford and consider stent to the RCA.
[2016-06-01] MEDS ORDERED: ATROPINE SULFATE 0.1 MG/ML 10ML SYRINGE ONE (15:49)
[2016-06-01] MEDS ORDERED: methylPREDNISolone SOD SUCCI 40 MG/ML 1 ML VIAL IV SCH (16:00)
[2016-06-01 17:05] LABS: Glucose,Whole Blood 143 mg/dL (75-99)
[2016-06-01] MEDS: methylPREDNISolone SOD SUCCI 40 MG/ML 1 ML VIAL IV SCH (21:18)
[2016-06-01] MEDS: METOPROLOL TARTRATE 12.5 MG TAB PO SCH (21:18)
[2016-06-01] MEDS: MONTELUKAST 10 MG TAB PO SCH (21:18)
[2016-06-01 21:28] LABS: Glucose,Whole Blood 97 mg/dL (75-99)
[2016-06-02] MEDS: SODIUM CHLORIDE 0.9% 1,000 ML IV SCH ×2 (00:46→04:06)
[2016-06-02] MEDS: LEVOFLOXACIN 750MG-D5W PMX 750 MG in DEXTROSE/WATER 1 150ML.BAG IVPB SCH (04:09)
[2016-06-02 06:09] LABS: Glucose,Whole Blood 115 mg/dL (75-99)
[2016-06-02] MEDS: INSULIN LISPRO (humaLOG) 300 UNIT/3 ML VIAL SQ SCH (06:16)
[2016-06-02 06:25] LABS: Basophils % (A) 0 %; CH 29.5; CHCM 32.2; Eosinophils % (A) 0 %; HCT 35.6 % (39.0-53.0); HDW 3.12; HGB 10.9 gm/dL (13.0-17.5); Hypochromasia Slight; Luc # (Auto) 0.09; Luc % (Auto) 1; Lymphocytes # (A) 0.4 k/uL (1.0-4.8); Lymphocytes % (A) 4 %; MCH 28.3 pg (25.0-35.0); MCHC 30.6 g/dL (31.0-37.0); MCV 92.4 fL (80.0-100.0); Mean Platelet Volume 7.3; Monocytes # (A) 0.5 k/uL (0-1.0); Monocytes % (A) 5 %; Neutrophils # (A) 9.3 k/uL (1.3-7.7); Neutrophils % (A) 90 %; RBC 3.85 m/uL (4.30-5.90); RDW 13.9 % (11.5-15.5); WBC 10.3 k/uL (3.8-10.6); WBC (Perox) 10.61
[2016-06-02] MEDS: PANTOPRAZOLE 40 MG TABLET PO SCH (06:35)
[2016-06-02] MEDS: LEVOTHYROXINE 100 MCG TAB PO SCH (06:35)
[2016-06-02 06:36] LABS: Anion Gap 7 mmol/L; Blood Urea Nitrogen 18 mg/dL (9-20); Calcium 8.1 mg/dL (8.4-10.2); Carbon Dioxide 24 mmol/L (22-30); Chloride 113 mmol/L (98-107); Glucose 120 mg/dL (74-99); Non-African American GFR(MDRD) >60 (>60 ml/min/1.73 sqM); Potassium 4.4 mmol/L (3.5-5.1); Sodium 144 mmol/L (137-145)
[2016-06-02] MEDS: IPRATROPIUM-ALBUTEROL 3 ML NEB INHALATION SCH ×2 (06:53→10:57)
[2016-06-02] MEDS: methylPREDNISolone SOD SUCCI 40 MG/ML 1 ML VIAL IV SCH (08:40)
[2016-06-02] MEDS: METOPROLOL TARTRATE 12.5 MG TAB PO SCH (08:40)
[2016-06-02] MEDS: ATORVASTATIN 80 MG TAB PO SCH (08:41)
[2016-06-02] MEDS ORDERED: ASPIRIN 81 MG CHEW PO SCH (09:00)
[2016-06-02] MEDS ORDERED: CLOPIDOGREL 75 MG TAB PO SCH (09:00)
[2016-06-02 09:14] VITALS: BP 138/74; RESP 18; TEMP 97.1
--- NOTE | 2016-06-02 10:16 | PTCA ---
DATE OF SERVICE: 06/01/2016 PROCEDURE: PTCA and stenting of mid-right coronary artery. Performed by Dr. Mariella Alford. CLINICAL INFORMATION: Mr. Milind Caballero is a 76-year-old gentleman with history of hypertension, hypercholesterolemia and CAD with a history of prior bypass surgery with DIA to LAD, vein graft to the diagonal and obtuse marginal. Because of unstable angina and a mild troponin elevation the patient was advised cardiac cath after evaluation by Dr. Obdulio Pichardo. He had a non-ST elevation GA and bronchitis-type picture clinically. Cardiac cath revealed that the grafts were patent. The RCA, which was not grafted was heavily calcified and there was an ostial narrowing of about 40% or so, but more importantly, the mid lesion had an eccentric 80% stenosis with haziness. He was advised intervention that was performed in the same setting. PROCEDURE NOTE: The existing 6 Uzbek introducer in the right femoral artery was used to perform the procedure. Initially I used a right Lianet catheter but I had difficulty with guide support. I switched over to a Katie guide catheter. With this I was able to get a more coaxial orientation. I advanced a Whisper wire initially but I had a lot of difficulty with the guide support and this wire was then taken out. I then advanced a BMW wire and the wire was positioned in the distal RCA. I used tract at 2.5 caliber, 12 mm balloon and predilated the lesion. I then deployed a 2.5 caliber, 12 mm long Xience stent in the mid lesion. I obtained multiple angiograms to check the proximal and ostial lesion and I felt both of these were about 40%. There was a good reflux and there was no damping when I cannulated the RCA with a Katie catheter. Given this, I did not perform an intervention of the ostium of the RCA or the proximal RCA and the mid RCA lesion was excellent with a good angiographic result. The sheath was then sutured and the patient sent to the room in stable condition and results were discussed with the patient and family. He received Angiomax bolus and infusion as per protocol and also 600 mg of Plavix were given. Excellent angiographic result was achieved without complication.
--- NOTE | 2016-06-02 10:19 | LTR ---
June 01, 2016 RE: Milind Caballero Dear Dr. Herrera: Thank you for the opportunity to participate in the care of Mr. Milind Caballero. I am pleased to report to you that he had an excellent angiographic result. I was able to stent the mid RCA with excellent angiographic result. He also has a lesion in the ostium and proximal RCA but neither of these are critical lesions. I am recommending that we will continue aspirin and Plavix without interruption for the next one year or so. Findings were discussed with the patient and family. Thank you for referral and please call for questions. Sincerely, WALLY LIVINGSTON MD
[2016-06-02 11:09] VITALS: PULSE 76
--- NOTE | 2016-06-02 14:51 | P.PN ---
Subjective Principal diagnosis: Cough, CHest pain This is a 76-year-old gentleman who follows regularly with Dr. VC Pichardo in the office. He has a known history of coronary artery disease with prior bypass surgery in 1994, hypertension, hyperlipidemia, prior pacemaker implantation. Patient presented to the hospital with a non-Q-wave myocardial infarction, he underwent angioplasty with stent placement of the right coronary artery. Patient was seen and examined this morning, feels well, denies any chest pain or difficulty in breathing. He has been up ambulating without any difficulty. Objective - Vital Signs Vital signs: Vital Signs Temp 97.1 F L 06/02/16 08:00 Pulse 76 06/02/16 11:08 Resp 18 06/02/16 08:00 BP 138/74 06/02/16 08:00 Pulse Ox 97 06/02/16 08:00 Intake & Output 06/01/16 06/02/16 06/02/16 18:59 06:59 18:59 Intake Total 403 Output Total 650 Balance -247 Weight 78 kg Intake: IV 283 Oral 120 Output: Urine 650 Other: Voiding Method Toilet Toilet Urinal Urinal # Voids 0 1 # Bowel Movements 1 - Exam PHYSICAL EXAMINATION: HEENT: Head is atraumatic, normocephalic. Pupils equal, round. Neck is supple. There is no elevated jugular venous pressure. HEART EXAMINATION: Heart S1, S2 normal. No murmur or gallop heard. CHEST EXAMINATION: Lungs reveal scattered rhonchi posterior bases. ABDOMEN: Soft, nontender. Bowel sounds are heard. No organomegaly noted. Right groin soft, no evidence of any hematoma. EXTREMITIES: 2+ peripheral pulses with no evidence of peripheral edema and no calf tenderness noted. NEUROLOGIC patient is awake, alert and oriented -3. . - Labs CBC & Chem 7: 06/02/16 05:45 06/02/16 05:45 Labs: Abnormal Lab Results - Last 24 Hours (Table) 06/01/16 06/02/16 06/02/16 Range/Units 17:02 05:45 05:45 RBC 3.85 L (4.30-5.90) m/uL Hgb 10.9 L (13.0-17.5) gm/dL Hct 35.6 L (39.0-53.0) % MCHC 30.6 L (31.0-37.0) g/dL Neutrophils # 9.3 H (1.3-7.7) k/uL Lymphocytes # 0.4 L (1.0-4.8) k/uL Chloride 113 H (98-107) mmol/L Glucose 120 H (74-99) mg/dL POC Glucose (mg/dL) 143 H (75-99) mg/dL Calcium 8.1 L (8.4-10.2) mg/dL 06/02/16 Range/Units 06:07 RBC (4.30-5.90) m/uL Hgb (13.0-17.5) gm/dL Hct (39.0-53.0) % MCHC (31.0-37.0) g/dL Neutrophils # (1.3-7.7) k/uL Lymphocytes # (1.0-4.8) k/uL Chloride (98-107) mmol/L Glucose (74-99) mg/dL POC Glucose (mg/dL) 115 H (75-99) mg/dL Calcium (8.4-10.2) mg/dL Assessment and Plan Plan: Assessment and plan #1 symptoms of persistent cough with evidence of low-grade temperature, elevated white blood cell count suspicion of a right lung pneumonia. Currently on antibiotics. #2 abnormal troponins, with evidence of lateral ST-T wave changes suggestive of non-Q-wave myocardial infarction, #3 known history of coronary artery disease with prior bypass surgery #4 hypertension # 5 hyperlipidemia #6 hypothyroidism #7 permanent pacemaker for sick sinus syndrome #8 VIDAL post stent placement of the right coronary artery. Plan Patient may be able to be discharged home today. We will make him a follow-up appointment to see Dr. VC Pichardo in the office post discharge. Patient has been educated regarding all of his medications and prescriptions have been provided. Daughter was present during that time as well. DNP note has been reviewed, I agree with a documented findings and plan of care. Patient was seen and examined.
--- NOTE | 2016-06-02 15:12 | P.DS ---
Providers Date of admission: 05/30/16 03:23 Expected date of discharge: 06/02/16 Attending physician: Cyndi Herrera Consults: 05/30/16 03:24 Consult Physician Urgent Consulting Provider: Elliot De Santiago Consult Reason/Comments: nstemi Do you want consulting provider notified?: Yes 06/01/16 13:37 Consult Physician Routine Consulting Provider: [facility] Consult Reason/Comments: Post Interventional patient Do you want consulting provider notified?: Already Contacted Primary care physician: Cyndi Herrera [facility] Course: This is a 76-year-old male. His primary care physician is Dr. Herrera. He has a past medical history for coronary artery disease status post CABG, pacemaker, hypertension, hypothyroidism, hyperlipidemia, dysphagia with epiglottitis from ingesting piece of food. Patient states that he has been managing at home well until 2 weeks ago he started with a cough that was nonproductive as well as headache from coughing. He also had some dizziness. He then also developed some wheezing due to his underlying COPD. He states he did not use his nebulizer. His daughter made him come into [facility] emergency center for evaluation. Chest x-ray showed suspected mild active infiltrates in the right middle lobe of the lung. Surprisingly, troponins were elevated at 0.138 and 0.579. He has been seen in consultation by cardiology. Echocardiogram reveals mild aortic stenosis, mild tricuspid regurgitation, severe pulmonary hypertension, borderline concentric left ventricular hypertrophy, EF 55-60%,. Patient is continued on IV heparin. Patient is seen in the emergency center as he is waiting for a selective care bed. 05/31: Patient states he was up to the shower this morning and did fine but now developed left-sided chest pain while he was resting in bed. It was a sudden onset. Patient was given nitroglycerin with relief and Nitropaste has been added. He remains on heparin drip. He states his breathing status is somewhat better from yesterday. Echocardiogram reveals mild aortic stenosis, mild tricuspid regurgitation, severe pulmonary hypertension mild mitral calcifications, borderline concentric left ventricular hypertrophy, EF 55-60%. Third troponin is 0.6. Triglycerides 61, cholesterol 112, LDL 61, HDL 39. 06/01: Patient is scheduled for heart catheterization today. He states his lungs are feeling better. He does have a hacking cough. Solu-Medrol will be decreased to 40 mg every 8 hours Chest pain is not present. 06/02: Mid RCA with 80% lesion status post stent. Patient is pain-free. Breathing status is much improved. Patient will be discharged home today in stable condition. Discharge diagnoses: 1. Pneumonia, possible gram-negative pneumonia. 2. Possible non-ST elevated myocardial infarction. 3. COPD exacerbation with underlying asthma, moderate persistent. 4. Hypertension. 5. Hypothyroidism. 6. Hyperlipidemia. Discharge plan: Return home Impression and plan of care have been directed as dictated by the signing physician. Elizabeth Maxwell nurse practitioner acting as scribe for signing physician. Patient Condition at Discharge: Good Plan - Discharge Summary New Discharge Prescriptions: Atorvastatin [Lipitor] 80 mg PO DAILY #30 tab Clopidogrel [Plavix] 75 mg PO DAILY #30 tab Levofloxacin [Levaquin] 750 mg PO DAILY #3 tab Metoprolol Tartrate [Lopressor] 12.5 mg PO BID #60 tab Nitroglycerin Sl Tabs [Nitrostat] 0.4 mg SUBLINGUAL Q5M PRN #25 tab PRN Reason: Chest Pain methylPREDNISolone Dose Pack [Medrol Dose Pack] 4 mg PO DIRECTED #21 package Discharge Medication List Levothyroxine Sodium [Synthroid] 100 mcg PO QAM 09/12/14 [History] Lisinopril-Hctz 10-12.5 mg [Zestoretic 10-12.5] 0.5 tab PO HS PRN 01/13/15 [ History] Ipratropium-Albuterol Nebulize [Duoneb 0.5 mg-3 mg/3 ml Soln] 3 ml INHALATION RT -QID PRN 04/06/16 [History] Mometasone/Formoterol [Dulera 100 Mcg/5 Mcg Inhaler] 2 puff INHALATION RT-BID [History] Montelukast [Singulair] 10 mg PO HS 04/06/16 [History] Omeprazole 20 mg PO DAILY 04/06/16 [History] Aspirin 81 mg PO DAILY chew 06/02/16 [Rx] Atorvastatin [Lipitor] 80 mg PO DAILY #30 tab 06/02/16 [Rx] Clopidogrel [Plavix] 75 mg PO DAILY #30 tab 06/02/16 [Rx] Levofloxacin [Levaquin] 750 mg PO DAILY #3 tab 06/02/16 [Rx] Metoprolol Tartrate [Lopressor] 12.5 mg PO BID #60 tab 06/02/16 [Rx] Nitroglycerin Sl Tabs [Nitrostat] 0.4 mg SUBLINGUAL Q5M PRN #25 tab 06/02/16 [Rx ] methylPREDNISolone Dose Pack [Medrol Dose Pack] 4 mg PO DIRECTED #21 package 06/02/16 [Rx] Follow up Appointment(s)/Referral(s): Cyndi Herrera MD [Primary Care Provider] - 06/08/16 2:15 pm Mary Pichardo MD [STAFF PHYSICIAN] - 06/09/16 4:00 pm Patient Instructions/Handouts: After Heart Catheterization - 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
== END 2016-06-02 13:17 | disposition home or self-care (01) | DRG 246 ==
LOC: EC 01:35 → 6SEL 03:23
PROVIDERS: ADMIT Internal Medicine; ATTEND Internal Medicine
DX: I21.4 Non-ST elevation (NSTEMI) myocardial infarction (principal); J15.6 Pneumonia due to other Gram-negative bacteria; I11.0 Hypertensive heart disease with heart failure; F03.90 Unspecified dementia, unspecified severity, without behavioral disturbance, psychotic disturbance, mood disturbance, and anxiety; I27.2 Other secondary pulmonary hypertension; I50.9 Heart failure, unspecified; J44.0 Chronic obstructive pulmonary disease with (acute) lower respiratory infection; I08.2 Rheumatic disorders of both aortic and tricuspid valves; E03.9 Hypothyroidism, unspecified; I25.110 Atherosclerotic heart disease of native coronary artery with unstable angina pectoris; E78.00 Pure hypercholesterolemia, unspecified; E78.5 Hyperlipidemia, unspecified; I45.10 Unspecified right bundle-branch block; J45.40 Moderate persistent asthma, uncomplicated; M19.90 Unspecified osteoarthritis, unspecified site; Y95 Nosocomial condition; Z79.82 Long term (current) use of aspirin; I25.2 Old myocardial infarction; Z86.73 Personal history of transient ischemic attack (TIA), and cerebral infarction without residual deficits; Z87.891 Personal history of nicotine dependence; Z95.0 Presence of cardiac pacemaker; Z95.1 Presence of aortocoronary bypass graft; Z79.899 Other long term (current) drug therapy; Z88.3 Allergy status to other anti-infective agents; Z88.5 Allergy status to narcotic agent
CPT/HCPCS: 36415; 71020; 80048; 80053; 80061; 82550; 82553; 83036; 83605; 83735; 83880; 84484; 85025; 85610; 85730; 87040; 93005; 93306; 93459; 94640; 94760; 96361; 96365; 96367; 96376; 99291

== ENCOUNTER 2017-02-09 13:02 | Observation (INO) | payer MEDICARE ==
--- NOTE | 2017-02-09 13:11 | ED ---
General Adult HPI - General Stated complaint: CHEST PAIN Time Seen by Provider: 02/09/17 13:02 Source: RN notes reviewed - History of Present Illness Initial comments: This is a 76-year-old male who presents emergency Department complaining of having his defibrillator fire 4 times prior to EMS arriving. EMS arrived his heart rate is about 62 and it fired one more time according to EMS. Patient states he had no symptoms prior to or after. Patient states currently she is asymptomatic. Patient denies feeling any palpitations chest pain or shortness of breath prior to or after the event. Patient denies any recent fever chills or cough. Patient denies any large intake of caffeine today. Patient states it hasn't happened in many years that he had a defibrillator fire. - Related Data Home Medications Medication Instructions Recorded Confirmed Levothyroxine Sodium [Synthroid] 100 mcg PO QAM 09/12/14 02/09/17 Lisinopril-Hctz 10-12.5 mg 0.5 tab PO HS PRN 01/13/15 02/09/17 [Zestoretic 10-12.5] Ipratropium-Albuterol Nebulize 3 ml INHALATION RT-BID 04/06/16 02/09/17 [Duoneb 0.5 mg-3 mg/3 ml Soln] Montelukast [Singulair] 10 mg PO HS 04/06/16 02/09/17 Atorvastatin [Lipitor] 80 mg PO HS 02/09/17 02/09/17 Metoprolol Tartrate [Lopressor] 12.5 mg PO BID 02/09/17 02/09/17 Previous Rx's Medication Instructions Recorded Aspirin 81 mg PO DAILY chew 06/02/16 Clopidogrel [Plavix] 75 mg PO DAILY #30 tab 06/02/16 Nitroglycerin Sl Tabs [Nitrostat] 0.4 mg SUBLINGUAL Q5M PRN #25 tab 06/02/16 Allergies Allergy/AdvReac Type Severity Reaction Status Date / Time codeine Allergy Rash/Hives Verified 02/09/17 13:33 iodine Allergy Rash/Hives Verified 02/09/17 13:33 Review of Systems ROS Statement: Those systems with pertinent positive or pertinent negative responses have been documented in the HPI. ROS Other: All systems not noted in ROS Statement are negative. Past Medical History Past Medical History: Asthma, Coronary Artery Disease (CAD), Heart Failure, COPD , CVA/TIA, Dementia, Hyperlipidemia, Hypertension, Myocardial Infarction ([place]), Osteoarthritis (OA), Pneumonia, Syncope, Thyroid Disorder Additional Past Medical History / Comment(s): DYSPHAGIA with epiglottitis from ingested piece of food, 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 Last Myocardial Infarction Date:: 1993 History of Any Multi-Drug Resistant Organisms: None Reported Past Surgical History: Appendectomy, Cholecystectomy, Coronary Bypass/CABG, Heart Catheterization, Hernia Repair, Orthopedic Surgery, Pacemaker, Tonsillectomy Additional Past Surgical History / Comment(s): RT ANKLE PIN, FX LEFT HIP WITH nailing, 1993 CABG X3 vessels, [facility] [employer] Past Anesthesia/Blood Transfusion Reactions: No Reported Reaction Type of Cardiac Device: Permanent Pacemaker Device Placement Date:: 08/31/2014 Past Psychological History: No Psychological Hx Reported Additional Psychological History / Comment(s): DEMENTIA. Pt resides with his daughter. He no longer drives, his daughter takes him to appts. His daughter ( Eula) is his legal guardian. He uses no assistive device. Smoking Status: Never smoker Past Alcohol Use History: None Reported Additional Past Alcohol Use History / Comment(s): Patient started smoking in 1956 and quit in 1994. He had been a pack a day smoker. Alcohol intake is rarely. He does not use any street drugs. He is single but lives with family members. He does not have home oxygen, nebulizers, CPAP. Past Drug Use History: None Reported - Past Family History Father Additional Family Medical History / Comment(s): Father at age 37 from motor vehicle accident Brother(s) Additional Family Medical History / Comment(s): Patient has 1 brother and 2 sisters and a half-brother with no major medical problems. Patient also has 2 daughters and 2 sons with no major medical problems. Mother Family Medical History: CVA/TIA Additional Family Medical History / Comment(s): Mother at age 84 from old age. General Exam - General Exam Comments Initial Comments: GENERAL: Patient is well-developed and well-nourished. Patient is nontoxic and well- hydrated and is in no acute distress. ENT: Neck is soft and supple. No significant lymphadenopathy is noted. Oropharynx is clear. Moist mucous membranes. Neck has full range of motion without eliciting any pain. EYES: The sclera were anicteric and conjunctiva were pink and moist. Extraocular movements were intact and pupils were equal round and reactive to light. Eyelids were unremarkable. PULMONARY: Unlabored respirations. Good breath sounds bilaterally. No audible rales rhonchi or wheezing was noted. CARDIOVASCULAR: There is a regular rate and rhythm without any murmurs gallops or rubs. ABDOMEN: Soft and nontender with normal bowel sounds. No palpable organomegaly was noted. There is no palpable pulsatile mass. SKIN: Skin is clear with no lesions or rashes and otherwise unremarkable. NEUROLOGIC: Patient is alert and oriented x3. Cranial nerves II through XII are grossly intact. Motor and sensory are also intact. Normal speech, volume and content. Symmetrical smile. MUSCULOSKELETAL: Normal extremities with adequate strength and full range of motion. No lower extremity swelling or edema. No calf tenderness. LYMPHATICS: No significant lymphadenopathy is noted PSYCHIATRIC: Normal psychiatric evaluation. Normal interpersonal interactions appears functionally intact in deals appropriately with others. No signs of depression. No signs of anxiety. 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 Patient's EKG shows no ST segment elevation or depression no T-wave abnormalities noted patient's EKG shows a right bundle branch block which was there in previous EKGs. Chest x-ray shows no acute abnormality Patient was started on amiodarone initially because of the police that he had 5 shocks however Carrie Oswald came down to see the patient and it was determined that he does not even have a defibrillator in place only a pacemaker. Amiodarone was then stopped. - Lab Data Result diagrams: 02/09/17 13:25 02/09/17 13:25 Lab Results 02/09/17 02/09/17 02/09/17 Range/Units 13:25 13:25 13:25 WBC 7.5 (3.8-10.6) k/uL RBC 4.91 (4.30-5.90) m/uL Hgb 15.1 (13.0-17.5) gm/dL Hct 44.7 (39.0-53.0) % MCV 91.2 (80.0-100.0) fL MCH 30.7 (25.0-35.0) pg MCHC 33.7 (31.0-37.0) g/dL RDW 13.9 (11.5-15.5) % Plt Count 182 (150-450) k/uL Neutrophils % 70 % Lymphocytes % 14 % Monocytes % 9 % Eosinophils % 5 % Basophils % 1 % Neutrophils # 5.2 (1.3-7.7) k/uL Lymphocytes # 1.1 (1.0-4.8) k/uL Monocytes # 0.7 (0-1.0) k/uL Eosinophils # 0.4 (0-0.7) k/uL Basophils # 0.1 (0-0.2) k/uL PT (9.0-12.0) sec INR (<1.2) APTT (22.0-30.0) sec Sodium 144 (137-145) mmol/L Potassium 3.8 (3.5-5.1) mmol/L Chloride 109 H (98-107) mmol/L Carbon Dioxide 26 (22-30) mmol/L Anion Gap 9 mmol/L BUN 14 (9-20) mg/dL Creatinine 1.03 (0.66-1.25) mg/dL Est GFR (MDRD) Af Amer >60 (>60 ml/min/1.73 sqM) Est GFR (MDRD) Non-Af >60 (>60 ml/min/1.73 sqM) Glucose 78 (74-99) mg/dL Calcium 8.9 (8.4-10.2) mg/dL Magnesium 2.0 (1.6-2.3) mg/dL Total Bilirubin 0.7 (0.2-1.3) mg/dL AST 22 (17-59) U/L ALT 24 (21-72) U/L Alkaline Phosphatase 53 (38-126) U/L Total Creatine Kinase 61 (55-170) U/L CK-MB (CK-2) 0.5 (0.0-2.4) ng/mL CK-MB (CK-2) Rel Index 0.8 Troponin I <0.012 (0.000-0.034) ng/mL Total Protein 6.5 (6.3-8.2) g/dL Albumin 3.9 (3.5-5.0) g/dL 02/09/17 Range/Units 13:25 WBC (3.8-10.6) k/uL RBC (4.30-5.90) m/uL Hgb (13.0-17.5) gm/dL Hct (39.0-53.0) % MCV (80.0-100.0) fL MCH (25.0-35.0) pg MCHC (31.0-37.0) g/dL RDW (11.5-15.5) % Plt Count (150-450) k/uL Neutrophils % % Lymphocytes % % Monocytes % % Eosinophils % % Basophils % % Neutrophils # (1.3-7.7) k/uL Lymphocytes # (1.0-4.8) k/uL Monocytes # (0-1.0) k/uL Eosinophils # (0-0.7) k/uL Basophils # (0-0.2) k/uL PT 11.3 (9.0-12.0) sec INR 1.1 (<1.2) APTT 26.2 (22.0-30.0) sec Sodium (137-145) mmol/L Potassium (3.5-5.1) mmol/L Chloride (98-107) mmol/L Carbon Dioxide (22-30) mmol/L Anion Gap mmol/L BUN (9-20) mg/dL Creatinine (0.66-1.25) mg/dL Est GFR (MDRD) Af Amer (>60 ml/min/1.73 sqM) Est GFR (MDRD) Non-Af (>60 ml/min/1.73 sqM) Glucose (74-99) mg/dL Calcium (8.4-10.2) mg/dL Magnesium (1.6-2.3) mg/dL Total Bilirubin (0.2-1.3) mg/dL AST (17-59) U/L ALT (21-72) U/L Alkaline Phosphatase (38-126) U/L Total Creatine Kinase (55-170) U/L CK-MB (CK-2) (0.0-2.4) ng/mL CK-MB (CK-2) Rel Index Troponin I (0.000-0.034) ng/mL Total Protein (6.3-8.2) g/dL Albumin (3.5-5.0) g/dL Disposition Clinical Impression: Chest pain Disposition: ADMITTED IP TO THIS HOSP Referrals: Cyndi Herrera MD [Primary Care Provider] - 1-2 days Time of Disposition: 14:26
[2017-02-09] MEDS ORDERED: DEXTROSE 5% IN WATER 100 ML with AMIODARONE 150 MG IV ONE (13:13)
[2017-02-09] MEDS ORDERED: AMIODARONE 450 MG in DEXTROSE 5% IN WATER 250 ML IV ONE ×2 (13:13)
[2017-02-09 13:40] LABS: Basophils # (A) 0.1 k/uL (0-0.2); Basophils % (A) 1 %; CH 30.1; CHCM 33.2; Eosinophils # (A) 0.4 k/uL (0-0.7); Eosinophils % (A) 5 %; HCT 44.7 % (39.0-53.0); HDW 3.16; HGB 15.1 gm/dL (13.0-17.5); Luc # (Auto) 0.12; Luc % (Auto) 2; Lymphocytes # (A) 1.1 k/uL (1.0-4.8); Lymphocytes % (A) 14 %; MCH 30.7 pg (25.0-35.0); MCHC 33.7 g/dL (31.0-37.0); MCV 91.2 fL (80.0-100.0); Mean Platelet Volume 6.5; Monocytes # (A) 0.7 k/uL (0-1.0); Monocytes % (A) 9 %; Neutrophils # (A) 5.2 k/uL (1.3-7.7); Neutrophils % (A) 70 %; RBC 4.91 m/uL (4.30-5.90); RDW 13.9 % (11.5-15.5); WBC 7.5 k/uL (3.8-10.6); WBC (Perox) 7.58
--- NOTE | 2017-02-09 13:45 | XR ---
EXAMINATION TYPE: XR chest 2V DATE OF EXAM: 02/09/2017 COMPARISON: 05/31/2016 TECHNIQUE: PA and lateral views submitted. HISTORY: Pneumonia FINDINGS: Cardiac device seen with postoperative change. Hyperinflation suggests COPD. Arthropathy of the shoul ders and hypertrophic and degenerative change of the spine. Surgical clips in the abdomen. No overt f ailure. Epicardial lead noted. IMPRESSION: 1. Correlate for COPD.
[2017-02-09 13:50] LABS: ALT 24 U/L (21-72); AST 22 U/L (17-59); Alkaline Phosphatase 53 U/L (38-126); Anion Gap 9 mmol/L; Blood Urea Nitrogen 14 mg/dL (9-20); Calcium 8.9 mg/dL (8.4-10.2); Carbon Dioxide 26 mmol/L (22-30); Chloride 109 mmol/L (98-107); Glucose 78 mg/dL (74-99); Non-African American GFR(MDRD) >60 (>60 ml/min/1.73 sqM); Potassium 3.8 mmol/L (3.5-5.1); Sodium 144 mmol/L (137-145); Total Bilirubin 0.7 mg/dL (0.2-1.3); Total Protein 6.5 g/dL (6.3-8.2)
[2017-02-09 13:55] LABS: INR 1.1 (<1.2); Partial Thromboplastin Time 26.2 sec (22.0-30.0); Prothrombin Time 11.3 sec (9.0-12.0)
[2017-02-09 14:03] LABS: Creatine Kinase 61 U/L (55-170)
[2017-02-09 14:16] LABS: Creatine Kinase MB 0.5 ng/mL (0.0-2.4); Troponin I <0.012 ng/mL (0.000-0.034)
[2017-02-09] MEDS ORDERED: NITROGLYCERIN SL TABS 0.4 MG TAB SUBLINGUAL PRN ×2 (14:26→17:31)
--- NOTE | 2017-02-09 17:30 | P.HPIM ---
History of Present Illness H&P Date: 02/09/17 Chief Complaint: Atypical chest pain, possible vibration of the defibrillator pacemaker, CAD 76-year-old male one of Dr. Herrera's patient with multiple medical problem who is known to have history of advance CAD post angioplasty stent placement and bypass surgery in the past who also has a pacemaker a few years ago who seen Dr. carroll on cardiology regular basis was not hospital last in May [address] NC or patient ended up going or angioplasty and stent placement of the right coronary artery in his done well with it at the time. Also patient had pacemaker placement back in August 2014 for severe bradycardia and sick sinus syndrome. Patient apparently live with his daughter and has been playing card with his when all of a sudden had an episode of chest pressure pain and vibration over the pacemaker site. Family ended up calling 911 patient brought to the emergency department Arcelia Umanzor and initially thought it's malfunction of defibrillator or defibrillator going off. Patient does not have any defibrillator. Cardiology were called in with the above symptom decided to admit patient to the hospital will run CK with troponin make sure this is not an NC or acute coronary syndrome and make sure his enzymes are negative climb up otherwise patient might require intervention. Review of Systems Constitutional: Reports anorexia, Reports fatigue, Reports lethargy, Reports malaise, Denies as per HPI, Denies chills, Denies chronic headaches, Denies chronic pain, Denies daytime sleepiness, Denies fever, Denies night sweats, Denies poor appetite, Denies sweats, Denies weakness, Denies weight gain, Denies weight loss Eyes: bilateral as per HPI Ears: bilateral: decreased hearing Ears, nose, mouth and throat: Reports nasal congestion, Reports sinus pressure, Denies as per HPI, Denies ant. neck pain, Denies bleeding gums, Denies dental pain, Denies dysphagia, Denies epistaxis, Denies headache, Denies hoarseness, Denies mouth pain, Denies nasal discharge, Denies neck fullness/pressure, Denies neck lump, Denies nose pain, Denies odynophagia, Denies post-nasal drip, Denies sinus pain, Denies swelling in mouth, Denies swelling in throat, Denies sore throat, Denies vertigo, Denies voice changes Cardiovascular: Reports chest pain, Reports dyspnea on exertion, Reports high blood pressure, Reports irregular heart beat, Reports lightheadedness, Reports palpitations, Reports rapid heart beat, Reports shortness of breath, Denies as per HPI, Denies claudication, Denies decreased exercise tolerance, Denies edema , Denies leg edema, Denies orthopnea, Denies paroxysmal nocturnal dyspnea, Denies phlebitis, Denies syncope Respiratory: Reports congestion, Reports dyspnea, Reports pain, Reports wheezing , Denies as per HPI, Denies cough, Denies cough with sputum, Denies excessive sputum, Denies hemoptysis, Denies home oxygen, Denies pain on inspiration, Denies pleurisy, Denies respiratory infections, Denies sleep apnea, Denies snoring Gastrointestinal: Reports abdominal pain, Reports bloating, Reports dyspepsia, Reports indigestion, Reports nausea, Denies as per HPI, Denies belching, Denies BRBPR, Denies change in bowel habits, Denies coffee ground emesis, Denies constipation, Denies diarrhea, Denies early satiety, Denies excessive gas, Denies heartburn, Denies hematemesis, Denies hematochezia, Denies jaundice, Denies lactose intolerance, Denies loss of appetite, Denies melena, Denies vomiting Genitourinary: Reports nocturia, Reports polyuria, Denies as per HPI, Denies decreased libido, Denies difficulties fathering child, Denies discharge, Denies dysuria, Denies erectile dysfunction, Denies flank pain, Denies genital pain, Denies genital sores, Denies hematuria, Denies impotence, Denies incontinence, Denies kidney stones, Denies testicular lump, Denies testicular pain, Denies urinary frequency, Denies urinary hesitancy, Denies urinary retention Musculoskeletal: Reports low back pain, Reports neck pain, Denies as per HPI, Denies arm numbness/tingling, Denies atrophy, Denies fractures, Denies frequent falls, Denies gait dysfunction, Denies hot joints, Denies leg numbness/tingling , Denies limitation of motion, Denies loss of height, Denies morning stiffness, Denies muscle cramps, Denies muscle weakness, Denies myalgias, Denies neck stiffness, Denies prior amputations, Denies redness of joints, Denies shooting arm pain, Denies shooting leg pain Musculoskeletal: bilateral: ankle pain Integumentary: Reports rash, Denies as per HPI, Denies acne, Denies boils, Denies brittle nails, Denies change in hair/nails, Denies color changes, Denies darkening of skin, Denies depigmentation, Denies dryness, Denies foot/leg ulcers , Denies growths, Denies hirsutism, Denies lesions, Denies onychomycosis, Denies pruritus, Denies sores, Denies striae, Denies unusual bruising, Denies wounds Neurological: Reports ataxia, Reports balance difficulties, Reports confusion, Reports gait dysfunction, Reports numbness, Reports tingling, Reports weakness, Denies as per HPI, Denies aphasia, Denies burning pain, Denies change in mentation, Denies change in smell/taste, Denies change in speech, Denies convulsions, Denies double vision, Denies head injury, Denies headaches, Denies hearing difficulties, Denies lack of coordination, Denies loss of vision, Denies memory loss, Denies migraines, Denies motor disturbance, Denies paralysis , Denies paresthesias, Denies seizures, Denies sensory deficit, Denies spasticity, Denies syncope, Denies tic, Denies transient paralysis, Denies tremors, Denies vertigo, Denies visual changes Psychiatric: Reports anhedonia, Reports anxiety, Reports depression, Reports memory loss, Denies as per HPI, Denies anxiety attacks, Denies change in appetite, Denies change in libido, Denies change in sleep habits, Denies confusion, Denies difficulty concentrating, Denies disorientation, Denies hallucinations, Denies hopelessness, Denies hypersomnia, Denies insomnia, Denies irritability, Denies mood swings, Denies paranoia, Denies sadness/ tearfulness, Denies sleep disturbances, Denies suicidal ideation Endocrine: Reports fatigue, Reports heat intolerance, Reports nocturia, Denies as per HPI, Denies cold intolerance, Denies deepening of the voice, Denies excessive sweating, Denies excessive thirst, Denies flushing, Denies high blood sugars, Denies increase in ring/shoe/hat size, Denies low blood sugars, Denies palpitations, Denies polydipsia, Denies polyphagia, Denies polyuria, Denies proptosis, Denies recent glucocorticoid use, Denies thyroid mass, Denies weight change Hematologic/Lymphatic: Reports easy bruising, Denies as per HPI, Denies easy bleeding, Denies lymphadenopathy, Denies lymphedema, Denies thrombophilia Allergic/Immunologic: Denies as per HPI, Denies allergic rhinitis, Denies anaphylaxis, Denies angioedema, Denies gluten intolerance, Denies persistent infections, Denies seasonal allergies, Denies urticaria, Denies wheezing Past Medical History Past Medical History: Asthma, Coronary Artery Disease (CAD), Heart Failure, COPD , CVA/TIA, Dementia, Hyperlipidemia, Hypertension, Myocardial Infarction ([place]), Osteoarthritis (OA), Pneumonia, Syncope, Thyroid Disorder Additional Past Medical History / Comment(s): DYSPHAGIA with epiglottitis from ingested piece of food, 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 Last Myocardial Infarction Date:: . History of Any Multi-Drug Resistant Organisms: None Reported Past Surgical History: Appendectomy, Cholecystectomy, Coronary Bypass/CABG, Heart Catheterization, Heart Catheterization With Stent, Hernia Repair, Orthopedic Surgery, Pacemaker, Tonsillectomy Additional Past Surgical History / Comment(s): RT ANKLE PIN, FX LEFT HIP WITH nailing, 1993 CABG X3 vessels, [facility] PAC[employer], [employer] -L[employer] IMPLANTS Past Anesthesia/Blood Transfusion Reactions: No Reported Reaction Date of Last Stent Placement:: 2016 Type of Cardiac Device: Permanent Pacemaker Device Placement Date:: 08/31/2014 Smoking Status: Former smoker - Past Family History Father Additional Family Medical History / Comment(s): Father at age 37 from motor vehicle accident Brother(s) Additional Family Medical History / Comment(s): Patient has 1 brother and 2 sisters and a half-brother with no major medical problems. Patient also has 2 daughters and 2 sons with no major medical problems. Mother Family Medical History: CVA/TIA Additional Family Medical History / Comment(s): Mother at age 84 from old age. Medications and Allergies Home Medications Medication Instructions Recorded Confirmed Type Levothyroxine Sodium [Synthroid] 100 mcg PO QAM 09/12/14 02/09/17 History Lisinopril-Hctz 10-12.5 mg 0.5 tab PO HS PRN 01/13/15 02/09/17 History [Zestoretic 10-12.5] Ipratropium-Albuterol Nebulize 3 ml INHALATION RT-BID 04/06/16 02/09/17 History [Duoneb 0.5 mg-3 mg/3 ml Soln] Montelukast [Singulair] 10 mg PO HS 04/06/16 02/09/17 History Aspirin 81 mg PO DAILY chew 06/02/16 02/09/17 Rx Clopidogrel [Plavix] 75 mg PO DAILY #30 tab 06/02/16 02/09/17 Rx Nitroglycerin Sl Tabs [Nitrostat] 0.4 mg SUBLINGUAL Q5M PRN #25 tab 06/02/16 Rx Atorvastatin [Lipitor] 80 mg PO HS 02/09/17 02/09/17 History Metoprolol Tartrate [Lopressor] 12.5 mg PO BID 02/09/17 02/09/17 History Allergies Allergy/AdvReac Type Severity Reaction Status Date / Time codeine Allergy Rash/Hives Verified 02/09/17 13:33 iodine Allergy Rash/Hives Verified 02/09/17 13:33 Physical Exam Vitals: Vital Signs Temp Pulse Pulse Pulse Resp BP BP 02/09/17 15:07 97.9 F 62 18 151/75 02/09/17 14:47 98 F 64 18 141/85 02/09/17 13:52 60 18 137/71 02/09/17 13:10 97.8 F 60 18 170/77 02/09/17 13:05 68 Pulse Ox 02/09/17 15:07 96 02/09/17 14:47 98 02/09/17 13:52 97 02/09/17 13:10 97 02/09/17 13:05 Intake and Output 02/09/17 02/09/17 02/09/17 06:59 14:59 22:59 Other: Voiding Method Toilet Weight 78.018 kg 70.5 kg Patient Weight 02/10/17 06:59 Weight 70.5 kg - Constitutional General appearance: no average body habitus, cooperative, no disheveled, no mild distress, no morbidly obese, no acute distress, no obese, no severe distress, no thin - EENT Eyes: no abnormal pupil, no anicteric sclerae, no disc margins sharp, no edentulous, no EOMI, no PERRLA, no fundus normal, no photophobia, no dentition normal, no poor dentition, no ptosis, no scleral icterus, normal appearance ENT: hard of hearing, no hearing grossly normal, no NA/AT, normal oropharynx, no other, no pharyngeal erythema, no thrush, no tonsillar exudates, no tonsillar swelling Ears: bilateral: normal - Neck Neck: no lymphadenopathy, normal ROM, no other, no rigidity, no stridor, no thyromegaly Carotids: bilateral: upstroke normal Thyroid: bilateral: normal size - Respiratory Respiratory: bilateral: CTA, diminished, dullness - Cardiovascular Rhythm: regular Heart sounds: normal: S1, S2 Abnormal Heart Sounds: systolic murmur, S3 Gallop - Gastrointestinal General gastrointestinal: no absent bowel sounds, no decreased bowel sounds, no distended, no hepatomegaly, no hyperactive bowel sounds, normal bowel sounds, no organomegaly, no rigid, no scaphoid, soft, no splenomegaly, no tenderness, no umbilical hernia, no ventral hernia - Integumentary Integumentary: no calor, no cellulitis, no cyanotic, no decreased turgor, no flushed, no jaundiced, normal, no normal turgor, pale, no rash, no ulcer - Neurologic Neurologic: CNII-XII intact - Musculoskeletal Musculoskeletal: no gait normal, generalized weakness, strength equal bilaterally, no right sided weakness, no left sided weakness - Psychiatric Psychiatric: A&O x's 3 Results CBC & Chem 7: 02/09/17 13:25 02/09/17 13:25 Labs: Abnormal Lab Results - Last 24 Hours (Table) 02/09/17 Range/Units 13:25 Chloride 109 H (98-107) mmol/L Thrombosis Risk Factor Assmnt - DVT/VTE Prophylaxis DVT/VTE Prophylaxis: Pharmacologic Prophylaxis ordered Assessment and Plan Plan: 1 atypical chest pain: Not a clear etiology for still's trunk history of CAD with history of CABG and multiple angioplasty, with the current symptoms patient be hospitalized CK with troponin 3 will be done consult cardiology repeat EKG in the morning if all negative full be left up to cardiology whether will require any intervention otherwise if his enzyme climbing up might require to go for heart cath. 2 possible malfunction or problem with his pacemaker: Patient really has a pacemaker not defibrillator which does not possible for it to go off leg defibrillator does but still cardiology we will interrogate the pacemaker to check for any malfunction or abnormality. 3 CAD: Post CABG and angioplasty patient is still on secondary prevention. 4 Hypertension: Remain on lisinopril HCT 10/12.5 mg half tablet daily along with metoprolol 12.5 mg twice a day. 5 hyperlipidemia: Remain on Plavix 80 mg daily. 6 COPD: With no flareup lately has been doing well using DuoNeb along with Singulair. 7 hypothyroidism: Continue levothyroxine 100 g daily. 8 possible this arrhythmia: Patient apparently was started in the emergency room on amiodarone drip. 9 advanced dementia: No change continue current medication and management. 10 DVT prophylaxis: Patient will be on heparin 5000 units obtain his twice a day. 11 GI prophylaxis: Patient will be on Pepcid 20 mg daily. CODE STATUS: Full code. Admit patient to the hospital for 1-2 nights.
[2017-02-09] MEDS ORDERED: LISINOPRIL-HCTZ 10-12.5 MG 1 EACH TAB PO PRN (17:31)
[2017-02-09] MEDS: HEPARIN SODIUM,PORCINE 5,000 UNIT/ML 1 ML VIAL SQ SCH (19:39)
[2017-02-09] MEDS: METOPROLOL TARTRATE 12.5 MG TAB PO SCH (19:40)
[2017-02-09] MEDS: IPRATROPIUM-ALBUTEROL 3 ML NEB INHALATION SCH (20:09)
[2017-02-09 20:27] LABS: Creatine Kinase 56 U/L (55-170)
[2017-02-09 20:39] LABS: Creatine Kinase MB 0.6 ng/mL (0.0-2.4); Troponin I <0.012 ng/mL (0.000-0.034)
[2017-02-09] MEDS ORDERED: ATORVASTATIN 80 MG TAB PO SCH (21:00)
[2017-02-09] MEDS ORDERED: MONTELUKAST 10 MG TAB PO SCH (21:00)
[2017-02-10 01:05] LABS: Cholesterol 105 mg/dL (<200); HDL Cholesterol 32 mg/dL (40-60)
[2017-02-10 01:23] LABS: Creatine Kinase 53 U/L (55-170)
[2017-02-10 01:37] LABS: Creatine Kinase MB 0.5 ng/mL (0.0-2.4); Troponin I <0.012 ng/mL (0.000-0.034)
[2017-02-10] MEDS ORDERED: LEVOTHYROXINE 100 MCG TAB PO SCH (06:30)
[2017-02-10] MEDS: IPRATROPIUM-ALBUTEROL 3 ML NEB INHALATION SCH (07:02)
[2017-02-10] MEDS: HEPARIN SODIUM,PORCINE 5,000 UNIT/ML 1 ML VIAL SQ SCH (07:14)
[2017-02-10] MEDS: METOPROLOL TARTRATE 12.5 MG TAB PO SCH (07:15)
[2017-02-10] MEDS ORDERED: ASPIRIN 81 MG PO SCH (09:00)
[2017-02-10] MEDS ORDERED: CLOPIDOGREL 75 MG TAB PO SCH (09:00)
[2017-02-10] MEDS ORDERED: FAMOTIDINE 20 MG TAB PO SCH (09:00)
[2017-02-10] MEDS ORDERED: ASPIRIN 325 MG TAB PO SCH (09:00)
--- NOTE | 2017-02-10 09:42 | P.CRDCN ---
History of Present Illness Consult date: 02/10/17 Chief complaint: Chest discomfort History of present illness: This is a pleasant 76-year-old gentleman who sees Dr. Shah on regular basis with a past medical history significant for CAD and prior revascularization in term of CABG and stenting, sick sinus syndrome and status post permanent pacemaker implantation, as well as multiple comorbid conditions, was brought to the hospital with a chest discomfort. The patient was in his usual state of health where he was at home playing cards with his when he suddenly developed a feeling of vibration over the pacemaker pocket. Beside that he also had severe chest discomfort. The patient was brought to the hospital for further evaluation. The cardiac enzymes were checked and came in to be unremarkable. The chest x-ray did not show any acute abnormalities. The patient does not have a defibrillator but he does have a pacemaker. I am going to interrogate the pacemaker. If the interrogation came in to be unremarkable the patient can be discharged home. 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 Last Myocardial Infarction Date:: . History of Any Multi-Drug Resistant Organisms: None Reported Past Surgical History: Appendectomy, Cholecystectomy, Coronary Bypass/CABG, Heart Catheterization, Heart Catheterization With Stent, Hernia Repair, Orthopedic Surgery, Pacemaker, Tonsillectomy Additional Past Surgical History / Comment(s): RT ANKLE PIN, FX LEFT HIP WITH nailing, 1993 CABG X3 vessels, [facility] PACEMAKER, [employer] CATARACTS -LENS IMPLANTS Past Anesthesia/Blood Transfusion Reactions: No Reported Reaction Date of Last Stent Placement:: 2016 Type of Cardiac Device: Permanent Pacemaker Device Placement Date:: 08/31/2014 Smoking Status: Former smoker - Past Family History Father Additional Family Medical History / Comment(s): Father at age 37 from motor vehicle accident Brother(s) Additional Family Medical History / Comment(s): Patient has 1 brother and 2 sisters and a half-brother with no major medical problems. Patient also has 2 daughters and 2 sons with no major medical problems. Mother Family Medical History: CVA/TIA Additional Family Medical History / Comment(s): Mother at age 84 from old age. Medications and Allergies Home Medications Medication Instructions Recorded Confirmed Type Levothyroxine Sodium [Synthroid] 100 mcg PO QAM 09/12/14 02/09/17 History Lisinopril-Hctz 10-12.5 mg 0.5 tab PO HS PRN 01/13/15 02/09/17 History [Zestoretic 10-12.5] Ipratropium-Albuterol Nebulize 3 ml INHALATION RT-BID 04/06/16 02/09/17 History [Duoneb 0.5 mg-3 mg/3 ml Soln] Montelukast [Singulair] 10 mg PO HS 04/06/16 02/09/17 History Aspirin 81 mg PO DAILY chew 06/02/16 02/09/17 Rx Clopidogrel [Plavix] 75 mg PO DAILY #30 tab 06/02/16 02/09/17 Rx Nitroglycerin Sl Tabs [Nitrostat] 0.4 mg SUBLINGUAL Q5M PRN #25 tab 06/02/16 Rx Atorvastatin [Lipitor] 80 mg PO HS 02/09/17 02/09/17 History Metoprolol Tartrate [Lopressor] 12.5 mg PO BID 02/09/17 02/09/17 History Allergies Allergy/AdvReac Type Severity Reaction Status Date / Time codeine Allergy Rash/Hives Verified 02/09/17 13:33 iodine Allergy Rash/Hives Verified 02/09/17 13:33 Physical Exam Vitals: Vital Signs Temp Pulse Pulse Pulse Resp BP BP 02/10/17 08:00 97.5 F L 60 15 104/48 02/10/17 07:11 63 14 02/10/17 07:03 63 14 02/10/17 04:00 97.6 F 60 18 105/63 02/10/17 03:07 18 02/09/17 23:32 18 02/09/17 22:48 60 18 108/50 02/09/17 20:20 67 02/09/17 20:11 67 02/09/17 20:00 18 02/09/17 19:21 97.6 F 60 18 125/57 02/09/17 15:07 97.9 F 62 18 151/75 02/09/17 14:47 98 F 64 18 141/85 02/09/17 13:52 60 18 137/71 02/09/17 13:10 97.8 F 60 18 170/77 02/09/17 13:05 68 Pulse Ox 02/10/17 08:00 95 02/10/17 07:11 02/10/17 07:03 96 02/10/17 04:00 98 02/10/17 03:07 02/09/17 23:32 02/09/17 22:48 98 02/09/17 20:20 02/09/17 20:11 96 02/09/17 20:00 02/09/17 19:21 98 02/09/17 15:07 96 02/09/17 14:47 98 02/09/17 13:52 97 02/09/17 13:10 97 02/09/17 13:05 Intake and Output 02/09/17 02/10/17 02/10/17 22:59 06:59 14:59 Intake Total 360 Balance 360 Intake: Oral 360 Other: Voiding Method Toilet Toilet Toilet # Voids 1 Weight 70.5 kg - Constitutional General appearance: no acute distress - Respiratory Respiratory: bilateral: CTA - Cardiovascular Rhythm: regular Heart sounds: normal: S1, S2 Abnormal Heart Sounds: systolic murmur Results 02/09/17 13:25 02/09/17 13:25 Cardiac Enzymes 02/09/17 02/09/17 02/09/17 Range/Units 13:25 13:25 19:43 AST 22 (17-59) U/L CK-MB (CK-2) 0.5 0.6 (0.0-2.4) ng/mL Troponin I <0.012 <0.012 (0.000-0.034) ng/mL 02/10/17 Range/Units 00:40 AST (17-59) U/L CK-MB (CK-2) 0.5 (0.0-2.4) ng/mL Troponin I <0.012 (0.000-0.034) ng/mL Coagulation 02/09/17 Range/Units 13:25 PT 11.3 (9.0-12.0) sec APTT 26.2 (22.0-30.0) sec Lipids 02/10/17 Range/Units 00:40 Triglycerides 95 (<150) mg/dL Cholesterol 105 (<200) mg/dL HDL Cholesterol 32 L (40-60) mg/dL CBC 02/09/17 Range/Units 13:25 WBC 7.5 (3.8-10.6) k/uL RBC 4.91 (4.30-5.90) m/uL Hgb 15.1 (13.0-17.5) gm/dL Hct 44.7 (39.0-53.0) % Plt Count 182 (150-450) k/uL Comprehensive Metabolic Panel 02/09/17 Range/Units 13:25 Sodium 144 (137-145) mmol/L Potassium 3.8 (3.5-5.1) mmol/L Chloride 109 H (98-107) mmol/L Carbon Dioxide 26 (22-30) mmol/L BUN 14 (9-20) mg/dL Creatinine 1.03 (0.66-1.25) mg/dL Glucose 78 (74-99) mg/dL Calcium 8.9 (8.4-10.2) mg/dL AST 22 (17-59) U/L ALT 24 (21-72) U/L Alkaline Phosphatase 53 (38-126) U/L Total Protein 6.5 (6.3-8.2) g/dL Albumin 3.9 (3.5-5.0) g/dL Current Medications Generic Name Dose Route Start Last Admin Trade Name Freq PRN Reason Stop Dose Admin Albuterol/Ipratropium 3 ml 02/09/17 20:00 02/10/17 07:02 Duoneb 0.5 Mg-3 Mg/3 Ml Soln INHALATION 3 ml RT-BID IDRIS Administration Aspirin 81 mg 02/10/17 09:00 02/10/17 07:14 Aspirin PO 81 mg DAILY IDRIS Administration Atorvastatin Calcium 80 mg 02/09/17 21:00 02/09/17 19:40 Lipitor PO 80 mg HS IDRIS Administration Clopidogrel Bisulfate 75 mg 02/10/17 09:00 02/10/17 07:14 Plavix PO 75 mg DAILY IDRIS Administration Famotidine 20 mg 02/10/17 09:00 02/10/17 07:14 Pepcid PO 20 mg DAILY IDRIS Administration Lisinopril/HCTZ 0.5 each 02/09/17 17:31 Zestoretic 10-12.5 PO HS PRN Systolic greater than 145 Heparin Sodium (Porcine) 5,000 unit 02/09/17 21:00 02/10/17 07:14 Heparin SQ 5,000 unit Q12HR IDRIS Administration Levothyroxine Sodium 100 mcg 02/10/17 06:30 02/10/17 07:13 Synthroid PO 100 mcg QAM@0630 IDIRS Administration Metoprolol Tartrate 12.5 mg 02/09/17 21:00 02/10/17 07:15 Lopressor PO 12.5 mg BID IDRIS Administration Montelukast Sodium 10 mg 02/09/17 21:00 02/09/17 19:40 Singulair PO 10 mg HS IDRIS Administration Nitroglycerin 0.4 mg 02/09/17 14:26 Nitrostat SUBLINGUAL Q5M PRN Chest Pain Intake and Output 02/09/17 02/10/17 02/10/17 22:59 06:59 14:59 Intake Total 360 Balance 360 Intake: Oral 360 Other: Voiding Method Toilet Toilet Toilet # Voids 1 Weight 70.5 kg 02/09/17 13:25 02/09/17 13:25 Assessment and Plan Plan: This is a pleasant 76-year-old gentleman with CAD and pacemaker resented to the hospital with a chest discomfort. Also he had vibration over the pacemaker device. We will check the device and if the interrogation came in to be unremarkable the patient can be discharged home
--- NOTE | 2017-02-10 11:41 | DS ---
DISCHARGE SUMMARY ADMISSION DIAGNOSES: 1. Chest pain. 2. Erythema. 3. Coronary artery disease. 4. Hyperlipidemia. 5. Hypertension. 6. Chronic obstructive pulmonary disease. 7. Hypothyroidism. CONSULTATION: Cardiology, Dr. Gaspar. DISCHARGE DIAGNOSIS: Pacemaker malfunctioning. HOSPITAL COURSE: This is a 76-year-old male who had the history of coronary artery disease, history of pacemaker placement, presented to the hospital with chest pain and vibration feeling around the pacemaker device. 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 Patient was tolerating diet, chest pain-free during the hospital stay, and felt stable from the medical standpoint for discharge. Asked to follow up with his primary care physician in 2 days and follow up with Cardiology on the scheduled appointment. Patient was discharged in stable condition. MMODL / IJN: [id number] /
[2017-02-10 12:04] VITALS: RESP 16
--- NOTE | 2017-02-10 13:23 | ECHOF ---
Referral Reason:chest pain MEASUREMENTS -------- HEIGHT: 177.8 cm WEIGHT: 78.0 kg BP: 137/71 RVIDd: 3.6 cm (< 3.3) IVSd: 1.2 cm (0.6 - 1.1) LVIDd: 4.5 cm (3.9 - 5.3) LVPWd: 1.1 cm (0.6 - 1.1) IVSs: 1.8 cm LVIDs: 3.1 cm LVPWs: 1.5 cm LA Diam: 3.9 cm (2.7 - 3.8) LAESV Index (A-L): 25.06 ml/m Ao Diam: 3.4 cm (2.0 - 3.7) AV Cusp: 1.4 cm (1.5 - 2.6) MV EXCURSION: 16.659 mm (> 18.000) MV EF SLOPE: 82 mm/s (70 - 150) EPSS: 0.3 cm MV E Chris: 0.67 m/s MV DecT: 307 ms MV A Chris: 0.81 m/s MV E/A Ratio: 0.83 AV maxP.13 mmHg AV meanP.16 mmHg RAP: 5.00 mmHg RVSP: 25.88 mmHg FINDINGS -------- Sinus rhythm. This was a technically adequate study. The left ventricular size is normal. There is borderline concentric left ventricular hypertrophy. Overall left ventricular systolic function is normal with, an EF between 55 - 60 %. The right ventricle is mildly enlarged. Normal LA size by volume 22+/-6 ml/m2. The right atrium is normal in size. There is mild aortic valve sclerosis. There is mild aortic stenosis present. Peak/mean gradient across the Aortic Valve is 12.13mmHg / 6.16mmHg. There is trace mitral regurgitation. Mild tricuspid regurgitation present. Right ventricular systolic pressure is normal at < 35 mmHg. The pulmonic valve was not well visualized. The aortic root size is normal. Normal inferior vena cava with normal inspiratory collapse consistent with estimated right atrial pressure of 5 mmHg. There is no pericardial effusion. CONCLUSIONS -------- 1. Sinus rhythm. 2. There is mild aortic stenosis present. 3. Peak/mean gradient across the Aortic Valve is 12.13mmHg / 6.16mmHg. 4. There is trace mitral regurgitation. 5. Mild tricuspid regurgitation present. 6. Right ventricular systolic pressure is normal at < 35 mmHg. 7. The pulmonic valve was not well visualized. 8. The aortic root size is normal. 9. Normal inferior vena cava with normal inspiratory collapse consistent with estimated right atrial pressure of 5 mmHg. 10. There is no pericardial effusion. 11. This was a technically adequate study. 12. The left ventricular size is normal. 13. There is borderline concentric left ventricular hypertrophy. 14. Overall left ventricular systolic function is normal with, an EF between 55 - 60 %. 15. The right ventricle is mildly enlarged. 16. Normal LA size by volume 22+/-6 ml/m2. 17. The right atrium is normal in size. 18. There is mild aortic valve sclerosis. MANAGER PRESENTATION: Louann Bello RDCS
[2017-02-10 16:03] VITALS: BP 139/64; PULSE 60; TEMP 97.7
== END 2017-02-10 16:55 | disposition home or self-care (01) ==
LOC: EC 13:02 → EEVIPCON 13:02 → 3OBS 14:26
PROVIDERS: ADMIT Internal Medicine Geriatric Medicine; ATTEND Internal Medicine Geriatric Medicine
DX: R07.89 Other chest pain (principal); J44.9 Chronic obstructive pulmonary disease, unspecified; I50.9 Heart failure, unspecified; I11.0 Hypertensive heart disease with heart failure; I25.2 Old myocardial infarction; I25.10 Atherosclerotic heart disease of native coronary artery without angina pectoris; F03.90 Unspecified dementia, unspecified severity, without behavioral disturbance, psychotic disturbance, mood disturbance, and anxiety; E78.5 Hyperlipidemia, unspecified; M19.90 Unspecified osteoarthritis, unspecified site; E03.9 Hypothyroidism, unspecified; Z95.1 Presence of aortocoronary bypass graft; Z95.0 Presence of cardiac pacemaker; Z79.899 Other long term (current) drug therapy; Z79.82 Long term (current) use of aspirin; Z79.02 Long term (current) use of antithrombotics/antiplatelets; Z88.5 Allergy status to narcotic agent; Z91.041 Radiographic dye allergy status; Z86.73 Personal history of transient ischemic attack (TIA), and cerebral infarction without residual deficits; Z87.891 Personal history of nicotine dependence; Z95.5 Presence of coronary angioplasty implant and graft
CPT/HCPCS: 96372 ×2; 96376; 96365; 99285; 36415; 94640 ×2; 94760; 93005; 93306; 80061; 80053; 82550 ×2; 82553 ×2; 83735; 84484 ×2; 85025; 85610; 85730; 71020; G0378 ×2; J1644 ×2; J0282 ×2